=== PATIENT | female | born 1950 | race Caucasian/White ===

== ENCOUNTER → 2017-03-24 | Outpatient (CLI) | payer MEDICARE, OTHER ==
[~2017-03-24] MED LIST: ALEVE 220MG220 MG PO; ATENOLOL PO; B-12 250 MCG PO; CLARITIN 1010 MG/TAB PO; COMPAZINE 110 MG/TAB PO; DECADRON 4MG TAB4 MG PO; LEVOTHYROXINE PO; PRILOSEC 20MG20 MG PO; SENOKOT S 50 MG1 TAB PO; SYNTHROID0.112 MG/T PO; TENORMIN 2525 MG/TAB PO; VITAMIN D31000 IU PO
== END ==
LOC: COL.RAD 05:54
DX: R10.11 Right upper quadrant pain (principal)
CPT/HCPCS: A9537; J2805

== ENCOUNTER → 2017-03-31 | Outpatient (CLI) | payer MEDICARE, OTHER | LOC: COL.RAD 10:55 | DX: M25.552 Pain in left hip (principal); M16.12 Unilateral primary osteoarthritis, left hip | CPT/HCPCS: J3301; Q9967 ==

== ENCOUNTER 2017-04-13 06:26 | Day surgery (SDC) | payer MEDICARE, OTHER ==
[2006-01-22 05:56] VITALS: BP 135/74
[~2017-04-13] VITALS: Ht 162.6 cm; Wt 60.0 kg
[~2017-04-13 06:26] MED LIST changes: -SYNTHROID0.112 MG/T PO; -TENORMIN 2525 MG/TAB PO; -VITAMIN D31000 IU PO
[2017-04-13 06:45] VITALS: BP 117/55; PULSE 79; TEMP 98.2
[2017-04-13] MEDS ORDERED: TENORMIN 2525 MG/TAB PO (06:52)
[2017-04-13] MEDS ORDERED: SYNTHROID0.112 MG/T PO (06:52)
[2017-04-13] MEDS ORDERED: VITAMIN D31000 IU PO (06:53)
[2017-04-13 08:00] VITALS: BP 136/65; PULSE 74; TEMP 98.1
[2017-04-13 08:15] VITALS: BP 114/63; PULSE 60
[2017-04-13 08:30] VITALS: BP 117/57; PULSE 60
[2017-04-13 08:45] VITALS: BP 123/47; PULSE 59
== END 2017-04-13 09:15 | disposition home or self-care (01) ==
LOC: SDCO 06:26
DX: Z12.11 Encounter for screening for malignant neoplasm of colon (principal); D12.0 Benign neoplasm of cecum; K57.30 Diverticulosis of large intestine without perforation or abscess without bleeding; Z85.850 Personal history of malignant neoplasm of thyroid; Z85.831 Personal history of malignant neoplasm of soft tissue
CPT/HCPCS: J2250; J2405; J3010; J7030

== ENCOUNTER → 2017-06-03 | Outpatient (CLI) | payer MEDICARE, OTHER ==
[~2017-06-03] MED LIST changes: +SYNTHROID0.112 MG/T PO; +TENORMIN 2525 MG/TAB PO; +VITAMIN D31000 IU PO
== END ==
LOC: COL.RAD 09:44
DX: M25.552 Pain in left hip (principal); M54.5 Low back pain
CPT/HCPCS: J3301; Q9967

== ENCOUNTER → 2017-08-25 | Outpatient (CLI) | payer MEDICARE, OTHER | LOC: MC.RAD 08-23 09:20 | DX: Z12.31 Encounter for screening mammogram for malignant neoplasm of breast (principal) ==

== ENCOUNTER → 2017-12-14 | Outpatient (CLI) | payer MEDICARE, OTHER | LOC: COL.RAD 07:27 | DX: R93.5 Abnormal findings on diagnostic imaging of other abdominal regions, including retroperitoneum (principal); C49.9 Malignant neoplasm of connective and soft tissue, unspecified | CPT/HCPCS: J7050; Q9967 ==

== ENCOUNTER → 2018-08-04 | Outpatient (CLI) | payer MEDICARE, OTHER | LOC: COL.RAD 07:35 | DX: C49.9 Malignant neoplasm of connective and soft tissue, unspecified (principal); R19.07 Generalized intra-abdominal and pelvic swelling, mass and lump | CPT/HCPCS: Q9967 ==

== ENCOUNTER → 2018-10-10 | Outpatient (CLI) | payer MEDICARE, OTHER | LOC: MC.RAD 09-15 09:40 | DX: Z12.31 Encounter for screening mammogram for malignant neoplasm of breast (principal) ==

== ENCOUNTER 2020-02-20 05:33 | Day surgery (SDC) | payer MEDICARE, OTHER ==
[2006-01-22 05:56] VITALS: BP 135/74
[~2020-02-20] VITALS: Ht 162.6 cm; Wt 63.8 kg
[2020-02-20 06:08] VITALS: BP 141/65; PULSE 56; TEMP 98.1
[2020-02-20] MEDS ORDERED: COZAAR 25MG25 MG/TAB PO (06:16)
[2020-02-20] MEDS ORDERED: VITAMINC1000TA PO (06:16)
[2020-02-20] MEDS ORDERED: SYNTHROID0.075 MG/T PO (06:16)
--- NOTE | 2020-02-20 06:16 | NUR ---
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
[2020-02-20 08:22] VITALS: BP 141/61; PULSE 53; TEMP 97.4
--- NOTE | 2020-02-20 08:22 | NUR ---
TO RM 8 PER CART FROM PACU. ALERT ORIENTED X3, TALKING WITH STAFF. RECEIVED WATER AND TAKING SIPS. DENIES N/V AND DENIES PAIN OR DISCOMFORT AT THIS TIME. ASSISTED TO BATHROOM. PATIENT VOIDED AND ASSISTED BACK TO BED.
[2020-02-20 08:35] VITALS: BP 137/59; PULSE 51
--- NOTE | 2020-02-20 08:35 | NUR ---
RECEIVED TOAST AND CRANBERRY JUICE.
[2020-02-20 09:00] VITALS: BP 139/59; PULSE 52
--- NOTE | 2020-02-20 09:00 | NUR ---
ATE 100% AND TOLERATED WELL.
[2020-02-20 09:22] VITALS: BP 148/49; PULSE 54
--- NOTE | 2020-02-20 09:22 | NUR ---
AMBULATED TO BATHROOM AND VOIDED 2ND TIME. DISCONTINUED IV AND INT- CATHETER INTACT PATIENT GETTING DRESSED
--- NOTE | 2020-02-20 09:30 | NUR ---
RECEIVED DISCHARGE INSTRUCTIONS AND VERBALIZED UNDERSTANDING. CALLED FOR RIDE HOME.
--- NOTE | 2020-02-20 09:50 | NUR ---
DISCHARGED PER WC BY NURSING STAFF TO PRIVATE CAR IN CARE .
== END 2020-02-20 10:02 | disposition home or self-care (01) ==
LOC: SDCO 05:33
DX: N13.1 Hydronephrosis with ureteral stricture, not elsewhere classified (principal); I10 Essential (primary) hypertension; Z85.850 Personal history of malignant neoplasm of thyroid; Z90.710 Acquired absence of both cervix and uterus
CPT/HCPCS: C1769; C2617; J0690; J1100; J2405; J2704; J3010; J7120; Q9967

== ENCOUNTER 2020-05-22 09:06 | Day surgery (SDC) | payer MEDICARE, OTHER ==
[2006-01-22 05:56] VITALS: BP 135/74
[~2020-05-22] VITALS: Ht 162.6 cm; Wt 62.2 kg
[~2020-05-22 09:06] MED LIST changes: +COZAAR 25MG25 MG/TAB PO; +SYNTHROID0.075 MG/T PO; +VITAMINC1000TA PO
[2020-05-22 09:27] VITALS: BP 128/76; PULSE 59; TEMP 98.2
[2020-05-22] MEDS ORDERED: TENORMIN 2525 MG/TAB PO (09:32)
[2020-05-22] MEDS ORDERED: SYNTHROID0.075 MG/T PO (09:32)
[2020-05-22] MEDS ORDERED: COZAAR 25MG25 MG/TAB PO (09:33)
[2020-05-22] MEDS ORDERED: VITAMINC1000TA PO (09:33)
[2020-05-22] MEDS ORDERED: NORCO 325 MG-51 TAB PO (11:22)
[2020-05-22 11:24] VITALS: BP 111/43; PULSE 61; TEMP 97.7
--- NOTE | 2020-05-22 11:24 | NUR ---
Arrived back to [facility] from the operating room at this time. The patient appears alert and oriented and denies any pain or nausea at this time. The patient has a bandaid and gauze dressings to her right upper chest that appear clean, dry and intact. The patient's post operative vital signs were started at this time. The patient voices a desire to ambulate to the bathroom and did so with the stand by assistance of one nurse and appeared to tolerate the activity well. The patient voided without difficulty. Call light is within reach. Will continue to monitor the patient.
[2020-05-22 11:39] VITALS: BP 111/65; PULSE 62
--- NOTE | 2020-05-22 11:40 | NUR ---
The patient's vital signs appear stable. The patient agrees to try some cranberry juice and toast at this time. Will continue to monitor the patient.
[2020-05-22 11:54] VITALS: BP 152/59; PULSE 67
--- NOTE | 2020-05-22 11:55 | NUR ---
The patient appears to be tolerating the food and drink well. The patient continues to deny any pain or nausea at this time. Vital signs remain stable. Will continue to monitor the patient.
[2020-05-22 12:10] VITALS: BP 124/48; PULSE 50
--- NOTE | 2020-05-22 12:10 | NUR ---
The patient's IV to her right hand was removed and a pressure dressing was applied to the site. The patient ambulated to the bathroom and then got dressed independently and appeared to tolerate the activity well. Discharge instructions were reviewed with the patient at this time. She verbalized understanding and has no questions for the nurse at this time.
--- NOTE | 2020-05-22 12:16 | NUR ---
The patient was escorted out via wheelchair to a private vehicle by EMERSON Abrams. The patient's belongings and discharge paperwork were sent with her. The patient's is present to drive her home.
== END 2020-05-22 12:16 | disposition home or self-care (01) ==
LOC: SDCO 09:06
DX: C49.9 Malignant neoplasm of connective and soft tissue, unspecified (principal); C79.2 Secondary malignant neoplasm of skin; I10 Essential (primary) hypertension; E78.00 Pure hypercholesterolemia, unspecified; E89.0 Postprocedural hypothyroidism; M19.90 Unspecified osteoarthritis, unspecified site; R20.2 Paresthesia of skin; Z85.850 Personal history of malignant neoplasm of thyroid; Z92.3 Personal history of irradiation; Z92.21 Personal history of antineoplastic chemotherapy; Z80.42 Family history of malignant neoplasm of prostate; Z90.710 Acquired absence of both cervix and uterus; Z90.722 Acquired absence of ovaries, bilateral
CPT/HCPCS: C1751; J0690; J2250; J2704; J7120

== ENCOUNTER → 2020-05-23 | Outpatient (CLI) | payer MEDICARE, OTHER ==
[~2020-05-23] MED LIST changes: +NORCO 325 MG-51 TAB PO
== END ==
LOC: COL.VAS 05-10 09:00
DX: C54.2 Malignant neoplasm of myometrium (principal); C79.89 Secondary malignant neoplasm of other specified sites; C78.6 Secondary malignant neoplasm of retroperitoneum and peritoneum; I36.1 Nonrheumatic tricuspid (valve) insufficiency; R59.0 Localized enlarged lymph nodes; N13.30 Unspecified hydronephrosis; Z90.710 Acquired absence of both cervix and uterus; Z96.0 Presence of urogenital implants
CPT/HCPCS: Q9967

== ENCOUNTER 2020-07-30 05:24 | Day surgery (SDC) | payer MEDICARE, OTHER ==
[2006-01-22 05:56] VITALS: BP 135/74
[~2020-07-30] VITALS: Ht 162.6 cm; Wt 62.5 kg
[~2020-07-30 05:24] MED LIST changes: +SYNTHROID0.05 MG/TA PO; +[UNRECOGNIZED DRUG - REMARK]
[2020-07-30 06:11] VITALS: BP 151/68; PULSE 65; TEMP 98
[2020-07-30 08:10] VITALS: BP 169/70; PULSE 65; TEMP 97.7
--- NOTE | 2020-07-30 08:10 | NUR ---
Patient arrives to [facility] via cart, accompanied by BAKERY SALES CLERK Sudha. She is alert and oriented. She denies pain. She complains of mild nausea, for which she has received Zofran and Phenergan for. She states she needs to void. Vitals are obtained, WNL. She is escorted to the restroom by staff, voids large amount clear/yellow urine, and returns to room. Gait was steady. She is offered and receives Sprite and crackers to eat. Lights are dimmed for comfort. Call light in reach.
[2020-07-30 08:25] VITALS: BP 146/69; PULSE 59
--- NOTE | 2020-07-30 08:25 | NUR ---
Patient states her nausea is improved. She is resting quietly. She denies other complaints.
[2020-07-30 08:40] VITALS: BP 141/64; PULSE 62
--- NOTE | 2020-07-30 08:40 | NUR ---
Patient is resting comfortably in room. VSS on room air. Denies pain or nausea. Ambulates to restroom with steady gait, voids, and returns to room.
[2020-07-30 08:55] VITALS: BP 148/62; PULSE 59
--- NOTE | 2020-07-30 08:55 | NUR ---
Patient is awake, sipping her sprite. She states she is "starting to feel more perky". VSS on room air.
--- NOTE | 2020-07-30 09:28 | NUR ---
Patient ambulates to the restroom, voids clear/yellow urine, returns to room.
--- NOTE | 2020-07-30 09:50 | NUR ---
Patient ate/drank and tolerated PO well. Patient has met discharge criteria. Discharge instructions are discussed; she denies any questions and verbalizes understanding. Her Byrnes catheter is flushed with 20mL NS and heparin locked per order from Dr. Kraus. She changes to her clothing independently. She is escorted to the exit via wheelchair by staff. She is discharged to home with ride in private with , Marisela, at 0950.
== END 2020-07-30 09:50 | disposition home or self-care (01) ==
LOC: SDCO 05:24
DX: N13.1 Hydronephrosis with ureteral stricture, not elsewhere classified (principal); I10 Essential (primary) hypertension; C49.9 Malignant neoplasm of connective and soft tissue, unspecified; M19.90 Unspecified osteoarthritis, unspecified site; Z90.710 Acquired absence of both cervix and uterus; Z80.3 Family history of malignant neoplasm of breast; Z80.0 Family history of malignant neoplasm of digestive organs
CPT/HCPCS: C1769; C2617; J0690; J1644; J2550; J2704; J3010

== ENCOUNTER 2020-07-31 09:00 | Outpatient (RCR) | payer MEDICARE, OTHER ==
[2006-01-22 05:56] VITALS: BP 135/74
[2020-05-29 09:43] VITALS: BP 138/71; PULSE 63; TEMP 98.9
[2020-05-29 10:55] LABS: ALBUMIN 3.7 gm/dL (3.5-5.0); BILIRUBIN,TOTAL 0.4 mg/dL (0.0-1.0); CALCIUM 8.9 mg/dL (8.4-10.2); CREATININE, serum 0.73 (0.52-1.25); POTASSIUM 4.1 mmol/L (3.4-5.0); TOTAL PROTEIN 6.8 gm/dL (6.4-8.2)
[2020-05-29 11:03] LABS: HEMATOCRIT 39.4 % (37.0-47.0); HEMOGLOBIN 13.1 g/dl (12.5-16.0); MEAN CELL VOLUME 89 fl (80.0-100.0); MEAN CORPUSCULAR HEMOGLOBIN 30 pg (27.0-31.0); MEAN CORPUSCULAR HGB CONC 33 g/dl (33.0-37.0); MEAN PLATELET VOLUME 9.7 fl (7.4-10.4); PLATELET COUNT 210 K/mm3 (130-400); RED BLOOD COUNT 4.43 M/mm3 (4.10-5.30); REDCELL DISTRIBUTION WIDTH-CV 13.1 % (11.5-14.5)
[2020-05-29 11:19] LABS: BAND 3 % (0-10); EOSINOPHIL 2 % (0-4); LYMPHOCYTE 26 % (20.0-51.0); NEUTROPHILS 62 % (42.0-75.2); PLATELET ESTIMATE NORMAL (NORMAL)
[2020-06-05 09:00] VITALS: BP 111/64; PULSE 76; TEMP 98.4
[2020-06-05 09:32] LABS: ALBUMIN 3.8 gm/dL (3.5-5.0); BILIRUBIN,TOTAL 0.6 mg/dL (0.0-1.0); CALCIUM 8.1 mg/dL (8.4-10.2); CREATININE, serum 0.8 (0.52-1.25); HEMATOCRIT 40.7 % (37.0-47.0); HEMOGLOBIN 13.4 g/dl (12.5-16.0); MEAN CELL VOLUME 90 fl (80.0-100.0); MEAN CORPUSCULAR HEMOGLOBIN 30 pg (27.0-31.0); MEAN CORPUSCULAR HGB CONC 33 g/dl (33.0-37.0); MEAN PLATELET VOLUME 9.1 fl (7.4-10.4); PLATELET COUNT 163 K/mm3 (130-400); POTASSIUM 4.1 mmol/L (3.4-5.0); RED BLOOD COUNT 4.52 M/mm3 (4.10-5.30)
[2020-06-05 09:49] LABS: BAND 2 % (0-10); EOSINOPHIL 1 % (0-4); LYMPHOCYTE 15 % (20.0-51.0); NEUTROPHILS 81 % (42.0-75.2); PLATELET ESTIMATE NORMAL (NORMAL)
[2020-06-12 09:56] VITALS: BP 111/67; PULSE 66; TEMP 98.8
[2020-06-12 09:59] LABS: HEMOGLOBIN 11.6 g/dl (12.5-16.0); MEAN CELL VOLUME 88 fl (80.0-100.0); MEAN CORPUSCULAR HEMOGLOBIN 29 pg (27.0-31.0); MEAN CORPUSCULAR HGB CONC 33 g/dl (33.0-37.0); MEAN PLATELET VOLUME 9.6 fl (7.4-10.4); PLATELET COUNT 163 K/mm3 (130-400); RED BLOOD COUNT 3.96 M/mm3 (4.10-5.30); REDCELL DISTRIBUTION WIDTH-CV 12.4 % (11.5-14.5)
[2020-06-12 10:03] LABS: HEMATOCRIT 34.9 % (37.0-47.0)
[2020-06-12 10:09] LABS: ALBUMIN 3.5 gm/dL (3.5-5.0); BILIRUBIN,TOTAL 0.2 mg/dL (0.0-1.0); CALCIUM 8.7 mg/dL (8.4-10.2); CREATININE, serum 0.75 (0.52-1.25); POTASSIUM 4.3 mmol/L (3.4-5.0); TOTAL PROTEIN 6.5 gm/dL (6.4-8.2)
[2020-06-12 10:38] LABS: BAND 3 % (0-10); EOSINOPHIL 4 % (0-4); LYMPHOCYTE 58 % (20.0-51.0); NEUTROPHILS 32 % (42.0-75.2); PLATELET ESTIMATE NORMAL (NORMAL)
[2020-06-19 09:26] LABS: ALBUMIN 3.7 gm/dL (3.5-5.0); BILIRUBIN,TOTAL 0.3 mg/dL (0.0-1.0); CALCIUM 8.8 mg/dL (8.4-10.2); CREATININE, serum 0.71 (0.52-1.25); POTASSIUM 4.1 mmol/L (3.4-5.0); TOTAL PROTEIN 6.7 gm/dL (6.4-8.2)
[2020-06-19 09:27] VITALS: BP 131/73; PULSE 69; TEMP 98.1
[2020-06-19 09:38] LABS: HEMOGLOBIN 11.6 g/dl (12.5-16.0); MEAN CELL VOLUME 90 fl (80.0-100.0); MEAN CORPUSCULAR HEMOGLOBIN 30 pg (27.0-31.0); MEAN CORPUSCULAR HGB CONC 33 g/dl (33.0-37.0); MEAN PLATELET VOLUME 9.1 fl (7.4-10.4); PLATELET COUNT 312 K/mm3 (130-400); RED BLOOD COUNT 3.88 M/mm3 (4.10-5.30); REDCELL DISTRIBUTION WIDTH-CV 13.7 % (11.5-14.5)
[2020-06-19 10:51] LABS: BAND 22 % (0-10); LYMPHOCYTE 21 % (20.0-51.0); METAMYELOCYTE 2 % (0-0); NEUTROPHILS 50 % (42.0-75.2)
[2020-06-19 10:52] LABS: PLATELET ESTIMATE NORMAL (NORMAL)
[2020-06-26 09:35] LABS: HEMOGLOBIN 11.1 g/dl (12.5-16.0); MEAN CELL VOLUME 90 fl (80.0-100.0); MEAN CORPUSCULAR HEMOGLOBIN 29 pg (27.0-31.0); MEAN CORPUSCULAR HGB CONC 33 g/dl (33.0-37.0); MEAN PLATELET VOLUME 8.9 fl (7.4-10.4); PLATELET COUNT 159 K/mm3 (130-400); RED BLOOD COUNT 3.77 M/mm3 (4.10-5.30); REDCELL DISTRIBUTION WIDTH-CV 13.8 % (11.5-14.5)
[2020-06-26 09:40] LABS: HEMATOCRIT 33.9 % (37.0-47.0)
[2020-06-26 09:43] VITALS: BP 130/68; PULSE 72; TEMP 98.7
[2020-06-26 09:52] LABS: ALBUMIN 3.4 gm/dL (3.5-5.0); BILIRUBIN,TOTAL 0.3 mg/dL (0.0-1.0); CREATININE, serum 0.69 (0.52-1.25); POTASSIUM 4.2 mmol/L (3.4-5.0); TOTAL PROTEIN 6.3 gm/dL (6.4-8.2)
[2020-06-26 10:02] LABS: BAND 3 % (0-10); EOSINOPHIL 1 % (0-4); LYMPHOCYTE 37 % (20.0-51.0); NEUTROPHILS 55 % (42.0-75.2); PLATELET ESTIMATE NORMAL (NORMAL)
[2020-07-01 09:22] VITALS: BP 129/67; PULSE 57; TEMP 98.2
[2020-07-01 09:24] LABS: HEMOGLOBIN 10.7 g/dl (12.5-16.0); MEAN CELL VOLUME 89 fl (80.0-100.0); MEAN CORPUSCULAR HEMOGLOBIN 30 pg (27.0-31.0); MEAN CORPUSCULAR HGB CONC 34 g/dl (33.0-37.0); MEAN PLATELET VOLUME 9.8 fl (7.4-10.4); PLATELET COUNT 198 K/mm3 (130-400); RED BLOOD COUNT 3.56 M/mm3 (4.10-5.30); REDCELL DISTRIBUTION WIDTH-CV 13.5 % (11.5-14.5)
[2020-07-01 09:38] LABS: ALBUMIN 3.6 gm/dL (3.5-5.0); BILIRUBIN,TOTAL 0.2 mg/dL (0.0-1.0); CALCIUM 8.9 mg/dL (8.4-10.2); CREATININE, serum 0.72 (0.52-1.25); TOTAL PROTEIN 6.6 gm/dL (6.4-8.2)
[2020-07-01 10:02] LABS: HEMATOCRIT 31.5 % (37.0-47.0)
[2020-07-01 10:18] LABS: BAND 5 % (0-10); EOSINOPHIL 8 % (0-4); LYMPHOCYTE 43 % (20.0-51.0); NEUTROPHILS 37 % (42.0-75.2); PLATELET ESTIMATE NORMAL (NORMAL)
[2020-07-10 09:43] LABS: HEMOGLOBIN 11.2 g/dl (12.5-16.0); MEAN CELL VOLUME 90 fl (80.0-100.0); MEAN CORPUSCULAR HEMOGLOBIN 31 pg (27.0-31.0); MEAN CORPUSCULAR HGB CONC 34 g/dl (33.0-37.0); MEAN PLATELET VOLUME 9.3 fl (7.4-10.4); PLATELET COUNT 338 K/mm3 (130-400); RED BLOOD COUNT 3.66 M/mm3 (4.10-5.30); REDCELL DISTRIBUTION WIDTH-CV 16.1 % (11.5-14.5)
[2020-07-10 09:44] LABS: HEMATOCRIT 33.1 % (37.0-47.0)
[2020-07-10 09:45] VITALS: BP 116/54; PULSE 66; TEMP 98.3
[2020-07-10 10:01] LABS: ALBUMIN 3.9 gm/dL (3.5-5.0); BILIRUBIN,TOTAL 0.4 mg/dL (0.0-1.0); CALCIUM 8.9 mg/dL (8.4-10.2); CREATININE, serum 0.71 (0.52-1.25); POTASSIUM 3.9 mmol/L (3.4-5.0); TOTAL PROTEIN 6.8 gm/dL (6.4-8.2)
[2020-07-10 10:25] LABS: BAND 17 % (0-10); BASOPHIL 1 % (0-2); EOSINOPHIL 1 % (0-4); LYMPHOCYTE 26 % (20.0-51.0); NEUTROPHILS 47 % (42.0-75.2); PLATELET ESTIMATE NORMAL (NORMAL)
[2020-07-10 10:28] LABS: THYROID STIMULATING HORMONE 6.4 uIU/mL (0.465-4.680)
[2020-07-17 09:39] VITALS: BP 111/57; PULSE 73; TEMP 97.6
[2020-07-17 09:48] LABS: HEMOGLOBIN 10.8 g/dl (12.5-16.0); MEAN CELL VOLUME 93 fl (80.0-100.0); MEAN CORPUSCULAR HEMOGLOBIN 31 pg (27.0-31.0); MEAN CORPUSCULAR HGB CONC 33 g/dl (33.0-37.0); MEAN PLATELET VOLUME 9.1 fl (7.4-10.4); PLATELET COUNT 169 K/mm3 (130-400); REDCELL DISTRIBUTION WIDTH-CV 16.8 % (11.5-14.5)
[2020-07-17 09:51] LABS: HEMATOCRIT 32.5 % (37.0-47.0)
[2020-07-17 09:56] LABS: ALBUMIN 3.7 gm/dL (3.5-5.0); BILIRUBIN,TOTAL 0.5 mg/dL (0.0-1.0); CALCIUM 8.2 mg/dL (8.4-10.2); CREATININE, serum 0.72 (0.52-1.25); POTASSIUM 4.1 mmol/L (3.4-5.0); TOTAL PROTEIN 6.3 gm/dL (6.4-8.2)
[2020-07-17 12:00] LABS: BAND 19 % (0-10); BASOPHIL 2 % (0-2); LYMPHOCYTE 20 % (20.0-51.0); NEUTROPHILS 59 % (42.0-75.2); PLATELET ESTIMATE NORMAL (NORMAL)
[2020-07-24 09:27] VITALS: BP 137/62; PULSE 69; TEMP 98.2
[2020-07-24 09:42] LABS: HEMOGLOBIN 10.5 g/dl (12.5-16.0); MEAN CELL VOLUME 91 fl (80.0-100.0); MEAN CORPUSCULAR HEMOGLOBIN 31 pg (27.0-31.0); MEAN CORPUSCULAR HGB CONC 34 g/dl (33.0-37.0); MEAN PLATELET VOLUME 10.2 fl (7.4-10.4); PLATELET COUNT 132 K/mm3 (130-400); RED BLOOD COUNT 3.42 M/mm3 (4.10-5.30); REDCELL DISTRIBUTION WIDTH-CV 16.6 % (11.5-14.5)
[2020-07-24 09:54] LABS: ALBUMIN 3.7 gm/dL (3.5-5.0); BILIRUBIN,TOTAL 0.3 mg/dL (0.0-1.0); CALCIUM 8.8 mg/dL (8.4-10.2); CREATININE, serum 0.72 (0.52-1.25); MAGNESIUM 1.8 mg/dL (1.6-2.3); POTASSIUM 3.7 mmol/L (3.4-5.0); TOTAL PROTEIN 6.5 gm/dL (6.4-8.2)
[2020-07-24 10:03] LABS: BAND 25 % (0-10); EOSINOPHIL 1 % (0-4); LYMPHOCYTE 24 % (20.0-51.0); NEUTROPHILS 46 % (42.0-75.2); PLATELET ESTIMATE NORMAL (NORMAL)
[~2020-07-31] VITALS: Ht 162.6 cm; Wt 62.0 kg
[2020-07-31 09:00] VITALS: BP 112/67; PULSE 81; TEMP 98.2
[2020-07-31 09:50] LABS: HEMOGLOBIN 10.5 g/dl (12.5-16.0); MEAN CELL VOLUME 93 fl (80.0-100.0); MEAN CORPUSCULAR HEMOGLOBIN 31 pg (27.0-31.0); MEAN CORPUSCULAR HGB CONC 34 g/dl (33.0-37.0); MEAN PLATELET VOLUME 9.8 fl (7.4-10.4); PLATELET COUNT 326 K/mm3 (130-400); RED BLOOD COUNT 3.37 M/mm3 (4.10-5.30); REDCELL DISTRIBUTION WIDTH-CV 17.8 % (11.5-14.5)
[2020-07-31 09:52] LABS: HEMATOCRIT 31.3 % (37.0-47.0)
[2020-07-31 10:03] LABS: ALBUMIN 3.8 gm/dL (3.5-5.0); BILIRUBIN,TOTAL 0.4 mg/dL (0.0-1.0); CALCIUM 8.5 mg/dL (8.4-10.2); CREATININE, serum 0.75 (0.52-1.25); MAGNESIUM 1.9 mg/dL (1.6-2.3); POTASSIUM 3.7 mmol/L (3.4-5.0); TOTAL PROTEIN 6.8 gm/dL (6.4-8.2)
[2020-07-31 10:15] LABS: BAND 13 % (0-10); EOSINOPHIL 1 % (0-4); LYMPHOCYTE 22 % (20.0-51.0); NEUTROPHILS 57 % (42.0-75.2); PLATELET ESTIMATE NORMAL (NORMAL)
== END 2020-08-01 09:09 | disposition home or self-care (01) ==
LOC: EUO 09:00
PROVIDERS: Family Medicine; Internal Medicine
DX: C54.2 Malignant neoplasm of myometrium (principal)
CPT/HCPCS: J1644

== ENCOUNTER → 2020-08-15 | Outpatient (CLI) | payer MEDICARE, OTHER | LOC: COL.VAS 13:19 | DX: C54.2 Malignant neoplasm of myometrium (principal); I36.1 Nonrheumatic tricuspid (valve) insufficiency; I51.7 Cardiomegaly; Z92.21 Personal history of antineoplastic chemotherapy ==

== ENCOUNTER 2020-10-30 09:00 | Outpatient (RCR) | payer MEDICARE, OTHER ==
[2006-01-22 05:56] VITALS: BP 135/74
[2020-08-07 09:30] VITALS: BP 112/62; PULSE 65; TEMP 97.9
[2020-08-07 09:36] LABS: HEMATOCRIT 33.5 % (37.0-47.0); MEAN CELL VOLUME 95 fl (80.0-100.0); MEAN CORPUSCULAR HEMOGLOBIN 31 pg (27.0-31.0); MEAN CORPUSCULAR HGB CONC 33 g/dl (33.0-37.0); MEAN PLATELET VOLUME 9.1 fl (7.4-10.4); PLATELET COUNT 317 K/mm3 (130-400); RED BLOOD COUNT 3.53 M/mm3 (4.10-5.30); REDCELL DISTRIBUTION WIDTH-CV 18.6 % (11.5-14.5)
[2020-08-07 09:41] LABS: ALBUMIN 3.9 gm/dL (3.5-5.0); BILIRUBIN,TOTAL 0.5 mg/dL (0.0-1.0); CALCIUM 8.4 mg/dL (8.4-10.2); CREATININE, serum 0.77 (0.52-1.25); POTASSIUM 3.9 mmol/L (3.4-5.0); TOTAL PROTEIN 6.9 gm/dL (6.4-8.2)
[2020-08-07 10:16] LABS: BAND 19 % (0-10); EOSINOPHIL 3 % (0-4); LYMPHOCYTE 10 % (20.0-51.0); METAMYELOCYTE 1 % (0-0); NEUTROPHILS 67 % (42.0-75.2); PLATELET ESTIMATE NORMAL (NORMAL)
[2020-08-14 09:31] LABS: HEMOGLOBIN 10.5 g/dl (12.5-16.0); MEAN CELL VOLUME 94 fl (80.0-100.0); MEAN CORPUSCULAR HEMOGLOBIN 32 pg (27.0-31.0); MEAN CORPUSCULAR HGB CONC 34 g/dl (33.0-37.0); MEAN PLATELET VOLUME 9.8 fl (7.4-10.4); PLATELET COUNT 189 K/mm3 (130-400); REDCELL DISTRIBUTION WIDTH-CV 18.1 % (11.5-14.5)
[2020-08-14 09:37] LABS: HEMATOCRIT 30.9 % (37.0-47.0)
[2020-08-14 09:44] LABS: ALBUMIN 3.8 gm/dL (3.5-5.0); BILIRUBIN,TOTAL 0.3 mg/dL (0.0-1.0); CALCIUM 8.9 mg/dL (8.4-10.2); CREATININE, serum 0.79 (0.52-1.25); MAGNESIUM 1.7 mg/dL (1.6-2.3); POTASSIUM 3.8 mmol/L (3.4-5.0); TOTAL PROTEIN 6.7 gm/dL (6.4-8.2)
[2020-08-14 10:01] LABS: ANISOCYTOSIS 1+; BAND 19 % (0-10); EOSINOPHIL 1 % (0-4); LYMPHOCYTE 22 % (20.0-51.0); NEUTROPHILS 55 % (42.0-75.2); PLATELET ESTIMATE NORMAL (NORMAL)
[2020-08-14 10:39] VITALS: BP 125/68; PULSE 66; TEMP 98.6
[2020-08-21 09:00] VITALS: BP 127/78; PULSE 69; TEMP 98.5
[2020-08-21 09:46] LABS: HEMOGLOBIN 10.5 g/dl (12.5-16.0); MEAN CELL VOLUME 94 fl (80.0-100.0); MEAN CORPUSCULAR HEMOGLOBIN 32 pg (27.0-31.0); MEAN CORPUSCULAR HGB CONC 34 g/dl (33.0-37.0); MEAN PLATELET VOLUME 9.8 fl (7.4-10.4); PLATELET COUNT 259 K/mm3 (130-400); RED BLOOD COUNT 3.32 M/mm3 (4.10-5.30); REDCELL DISTRIBUTION WIDTH-CV 18.6 % (11.5-14.5)
[2020-08-21 09:50] LABS: HEMATOCRIT 31.2 % (37.0-47.0)
[2020-08-21 09:51] LABS: ALBUMIN 3.9 gm/dL (3.5-5.0); BILIRUBIN,TOTAL 0.4 mg/dL (0.0-1.0); CALCIUM 8.8 mg/dL (8.4-10.2); CREATININE, serum 0.74 (0.52-1.25); MAGNESIUM 1.9 mg/dL (1.6-2.3); POTASSIUM 3.8 mmol/L (3.4-5.0); TOTAL PROTEIN 7.1 gm/dL (6.4-8.2)
[2020-08-21 10:09] LABS: BAND 11 % (0-10); BASOPHIL 2 % (0-2); EOSINOPHIL 3 % (0-4); LYMPHOCYTE 10 % (20.0-51.0); NEUTROPHILS 64 % (42.0-75.2); OVALOCYTES 1+; PLATELET ESTIMATE NORMAL (NORMAL)
[2020-08-28 09:53] VITALS: BP 119/68; PULSE 73; TEMP 97.8
[2020-08-28 09:55] LABS: HEMOGLOBIN 10.8 g/dl (12.5-16.0); MEAN CELL VOLUME 99 fl (80.0-100.0); MEAN CORPUSCULAR HEMOGLOBIN 33 pg (27.0-31.0); MEAN CORPUSCULAR HGB CONC 33 g/dl (33.0-37.0); MEAN PLATELET VOLUME 9.4 fl (7.4-10.4); PLATELET COUNT 322 K/mm3 (130-400); RED BLOOD COUNT 3.29 M/mm3 (4.10-5.30); REDCELL DISTRIBUTION WIDTH-CV 19.5 % (11.5-14.5)
[2020-08-28 09:56] LABS: HEMATOCRIT 32.4 % (37.0-47.0)
[2020-08-28 10:05] LABS: ALBUMIN 3.9 gm/dL (3.5-5.0); BILIRUBIN,TOTAL 0.4 mg/dL (0.0-1.0); CALCIUM 8.5 mg/dL (8.4-10.2); CREATININE, serum 0.72 (0.52-1.25); POTASSIUM 3.8 mmol/L (3.4-5.0); TOTAL PROTEIN 6.9 gm/dL (6.4-8.2)
[2020-08-28 10:18] LABS: ANISOCYTOSIS 2+; BAND 19 % (0-10); BASOPHIL 1 % (0-2); LYMPHOCYTE 11 % (20.0-51.0); NEUTROPHILS 63 % (42.0-75.2); PLATELET ESTIMATE NORMAL (NORMAL)
[2020-09-05 11:10] VITALS: BP 120/52; PULSE 65; TEMP 98
[2020-09-05 11:42] LABS: ALBUMIN 3.9 gm/dL (3.5-5.0); BILIRUBIN,TOTAL 0.4 mg/dL (0.0-1.0); CALCIUM 8.9 mg/dL (8.4-10.2); CREATININE, serum 0.74 (0.52-1.25); POTASSIUM 4.1 mmol/L (3.4-5.0); TOTAL PROTEIN 6.9 gm/dL (6.4-8.2)
[2020-09-05 11:46] LABS: HEMOGLOBIN 10.6 g/dl (12.5-16.0); MEAN CELL VOLUME 98 fl (80.0-100.0); MEAN CORPUSCULAR HEMOGLOBIN 33 pg (27.0-31.0); MEAN CORPUSCULAR HGB CONC 34 g/dl (33.0-37.0); MEAN PLATELET VOLUME 9.6 fl (7.4-10.4); PLATELET COUNT 251 K/mm3 (130-400); RED BLOOD COUNT 3.22 M/mm3 (4.10-5.30); REDCELL DISTRIBUTION WIDTH-CV 18.2 % (11.5-14.5)
[2020-09-05 12:06] LABS: BAND 21 % (0-10); BASOPHIL 1 % (0-2); EOSINOPHIL 4 % (0-4); HEMATOCRIT 31.6 % (37.0-47.0); LYMPHOCYTE 15 % (20.0-51.0); NEUTROPHILS 49 % (42.0-75.2); OVALOCYTES 1+; PLATELET ESTIMATE NORMAL (NORMAL)
[2020-09-11 09:36] VITALS: BP 123/66; PULSE 68; TEMP 98.5
[2020-09-11 10:14] LABS: HEMOGLOBIN 10.9 g/dl (12.5-16.0); MEAN CELL VOLUME 99 fl (80.0-100.0); MEAN CORPUSCULAR HEMOGLOBIN 33 pg (27.0-31.0); MEAN CORPUSCULAR HGB CONC 33 g/dl (33.0-37.0); MEAN PLATELET VOLUME 9.7 fl (7.4-10.4); PLATELET COUNT 282 K/mm3 (130-400); REDCELL DISTRIBUTION WIDTH-CV 17.2 % (11.5-14.5)
[2020-09-11 10:15] LABS: HEMATOCRIT 32.6 % (37.0-47.0)
[2020-09-11 10:23] LABS: ALBUMIN 3.8 gm/dL (3.5-5.0); BILIRUBIN,TOTAL 0.4 mg/dL (0.0-1.0); CALCIUM 8.9 mg/dL (8.4-10.2); CREATININE, serum 0.74 (0.52-1.25); POTASSIUM 4.2 mmol/L (3.4-5.0); TOTAL PROTEIN 6.8 gm/dL (6.4-8.2)
[2020-09-11 10:24] LABS: BAND 20 % (0-10); BASOPHIL 2 % (0-2); EOSINOPHIL 3 % (0-4); LYMPHOCYTE 13 % (20.0-51.0); NEUTROPHILS 57 % (42.0-75.2); PLATELET ESTIMATE NORMAL (NORMAL)
[2020-09-18 09:34] VITALS: BP 102/63; PULSE 80; TEMP 97
[2020-09-18 09:53] LABS: ALBUMIN 3.8 gm/dL (3.5-5.0); BILIRUBIN,TOTAL 0.5 mg/dL (0.0-1.0); CALCIUM 8.3 mg/dL (8.4-10.2); CREATININE, serum 0.81 (0.52-1.25); HEMOGLOBIN 10.7 g/dl (12.5-16.0); MEAN CELL VOLUME 102 fl (80.0-100.0); MEAN CORPUSCULAR HEMOGLOBIN 33 pg (27.0-31.0); MEAN CORPUSCULAR HGB CONC 33 g/dl (33.0-37.0); MEAN PLATELET VOLUME 9.5 fl (7.4-10.4); PLATELET COUNT 190 K/mm3 (130-400); POTASSIUM 4.1 mmol/L (3.4-5.0); RED BLOOD COUNT 3.23 M/mm3 (4.10-5.30); REDCELL DISTRIBUTION WIDTH-CV 15.9 % (11.5-14.5); TOTAL PROTEIN 6.6 gm/dL (6.4-8.2)
[2020-09-18 09:55] LABS: HEMATOCRIT 32.9 % (37.0-47.0)
[2020-09-18 10:47] LABS: BAND 16 % (0-10); EOSINOPHIL 6 % (0-4); HYPOCHROMIA 1+; LYMPHOCYTE 11 % (20.0-51.0); NEUTROPHILS 64 % (42.0-75.2)
[2020-09-18 10:48] LABS: OVALOCYTES 1+
[2020-09-18 10:51] LABS: ANISOCYTOSIS 1+; PLATELET ESTIMATE NORMAL (NORMAL)
[2020-09-25 09:33] VITALS: BP 121/70; PULSE 77; TEMP 98.6
[2020-09-25 09:51] LABS: ALBUMIN 3.8 gm/dL (3.5-5.0); BILIRUBIN,TOTAL 0.3 mg/dL (0.0-1.0); CALCIUM 8.8 mg/dL (8.4-10.2); CREATININE, serum 0.76 (0.52-1.25); MAGNESIUM 1.8 mg/dL (1.6-2.3); POTASSIUM 3.7 mmol/L (3.4-5.0); TOTAL PROTEIN 6.5 gm/dL (6.4-8.2)
[2020-09-25 10:32] LABS: MEAN CELL VOLUME 100 fl (80.0-100.0); MEAN CORPUSCULAR HGB CONC 34 g/dl (33.0-37.0); MEAN PLATELET VOLUME 10.4 fl (7.4-10.4); PLATELET COUNT 161 K/mm3 (130-400); RED BLOOD COUNT 2.86 M/mm3 (4.10-5.30); REDCELL DISTRIBUTION WIDTH-CV 14.5 % (11.5-14.5)
[2020-09-25 10:45] LABS: HEMATOCRIT 28.6 % (37.0-47.0); HEMOGLOBIN 9.6 g/dl (12.5-16.0); MEAN CORPUSCULAR HEMOGLOBIN 34 pg (27.0-31.0)
[2020-09-25 11:58] LABS: BAND 13 % (0-10); EOSINOPHIL 3 % (0-4); LYMPHOCYTE 9 % (20.0-51.0); NEUTROPHILS 70 % (42.0-75.2); PLATELET ESTIMATE NORMAL (NORMAL)
[2020-10-02 09:13] VITALS: BP 125/73; PULSE 66; TEMP 98.7
[2020-10-02 09:40] LABS: MEAN CELL VOLUME 100 fl (80.0-100.0); MEAN CORPUSCULAR HGB CONC 34 g/dl (33.0-37.0); MEAN PLATELET VOLUME 9.4 fl (7.4-10.4); PLATELET COUNT 276 K/mm3 (130-400); RED BLOOD COUNT 2.92 M/mm3 (4.10-5.30); REDCELL DISTRIBUTION WIDTH-CV 14.7 % (11.5-14.5)
[2020-10-02 09:43] LABS: HEMATOCRIT 29.3 % (37.0-47.0); HEMOGLOBIN 9.9 g/dl (12.5-16.0); MEAN CORPUSCULAR HEMOGLOBIN 34 pg (27.0-31.0)
[2020-10-02 09:55] LABS: ALBUMIN 3.9 gm/dL (3.5-5.0); BILIRUBIN,TOTAL 0.4 mg/dL (0.0-1.0); CALCIUM 8.9 mg/dL (8.4-10.2); CREATININE, serum 0.77 (0.52-1.25); POTASSIUM 4.1 mmol/L (3.4-5.0); TOTAL PROTEIN 6.6 gm/dL (6.4-8.2)
[2020-10-02 10:21] LABS: BAND 7 % (0-10); EOSINOPHIL 2 % (0-4); LYMPHOCYTE 20 % (20.0-51.0); NEUTROPHILS 65 % (42.0-75.2)
[2020-10-02 10:22] LABS: PLATELET ESTIMATE NORMAL (NORMAL)
[2020-10-02 10:23] LABS: ANISOCYTOSIS 2+
[2020-10-09 09:32] VITALS: BP 104/65; PULSE 73; TEMP 97.8
[2020-10-09 09:39] LABS: HEMOGLOBIN 10.4 g/dl (12.5-16.0); MEAN CELL VOLUME 103 fl (80.0-100.0); MEAN CORPUSCULAR HEMOGLOBIN 34 pg (27.0-31.0); MEAN CORPUSCULAR HGB CONC 33 g/dl (33.0-37.0); PLATELET COUNT 289 K/mm3 (130-400); RED BLOOD COUNT 3.04 M/mm3 (4.10-5.30); REDCELL DISTRIBUTION WIDTH-CV 14.9 % (11.5-14.5)
[2020-10-09 09:44] LABS: HEMATOCRIT 31.2 % (37.0-47.0)
[2020-10-09 09:46] LABS: ALBUMIN 3.8 gm/dL (3.5-5.0); BILIRUBIN,TOTAL 0.4 mg/dL (0.0-1.0); CALCIUM 8.6 mg/dL (8.4-10.2); CREATININE, serum 0.82 (0.52-1.25); MAGNESIUM 2.3 mg/dL (1.6-2.3); POTASSIUM 3.7 mmol/L (3.4-5.0); TOTAL PROTEIN 6.6 gm/dL (6.4-8.2)
[2020-10-09 11:03] LABS: BAND 22 % (0-10); BASOPHIL 1 % (0-2); LYMPHOCYTE 5 % (20.0-51.0); NEUTROPHILS 70 % (42.0-75.2); PLATELET ESTIMATE NORMAL (NORMAL)
[2020-10-16 09:14] VITALS: BP 122/71; PULSE 60; TEMP 98.1
[2020-10-16 09:32] LABS: MEAN CELL VOLUME 101 fl (80.0-100.0); MEAN CORPUSCULAR HGB CONC 33 g/dl (33.0-37.0); MEAN PLATELET VOLUME 10.3 fl (7.4-10.4); PLATELET COUNT 107 K/mm3 (130-400); RED BLOOD COUNT 2.89 M/mm3 (4.10-5.30); REDCELL DISTRIBUTION WIDTH-CV 13.4 % (11.5-14.5)
[2020-10-16 09:35] LABS: ALBUMIN 3.7 gm/dL (3.5-5.0); BILIRUBIN,TOTAL 0.3 mg/dL (0.0-1.0); CALCIUM 8.6 mg/dL (8.4-10.2); CREATININE, serum 0.76 (0.52-1.25); POTASSIUM 4.2 mmol/L (3.4-5.0); TOTAL PROTEIN 6.6 gm/dL (6.4-8.2)
[2020-10-16 09:35] LABS: HEMATOCRIT 29.2 % (37.0-47.0); HEMOGLOBIN 9.6 g/dl (12.5-16.0); MEAN CORPUSCULAR HEMOGLOBIN 33 pg (27.0-31.0)
[2020-10-16 10:28] LABS: BAND 9 % (0-10); BASOPHIL 1 % (0-2); EOSINOPHIL 3 % (0-4); LYMPHOCYTE 19 % (20.0-51.0); NEUTROPHILS 64 % (42.0-75.2)
[2020-10-16 10:29] LABS: HYPOCHROMIA 1+; PLATELET ESTIMATE NORMAL (NORMAL)
[2020-10-23 09:41] VITALS: BP 121/66; PULSE 69; TEMP 98.4
[2020-10-23 09:57] LABS: MEAN CELL VOLUME 99 fl (80.0-100.0); MEAN CORPUSCULAR HGB CONC 34 g/dl (33.0-37.0); MEAN PLATELET VOLUME 10.1 fl (7.4-10.4); PLATELET COUNT 163 K/mm3 (130-400); RED BLOOD COUNT 2.94 M/mm3 (4.10-5.30); REDCELL DISTRIBUTION WIDTH-CV 13.7 % (11.5-14.5)
[2020-10-23 10:04] LABS: ALBUMIN 3.8 gm/dL (3.5-5.0); BILIRUBIN,TOTAL 0.3 mg/dL (0.0-1.0); CALCIUM 8.9 mg/dL (8.4-10.2); CREATININE, serum 0.77 (0.52-1.25); HEMATOCRIT 29.1 % (37.0-47.0); HEMOGLOBIN 9.8 g/dl (12.5-16.0); MAGNESIUM 1.9 mg/dL (1.6-2.3); MEAN CORPUSCULAR HEMOGLOBIN 33 pg (27.0-31.0); TOTAL PROTEIN 6.8 gm/dL (6.4-8.2)
[2020-10-23 10:35] LABS: BAND 12 % (0-10); LYMPHOCYTE 8 % (20.0-51.0); NEUTROPHILS 74 % (42.0-75.2)
[2020-10-23 10:36] LABS: PLATELET ESTIMATE NORMAL (NORMAL)
[~2020-10-30] VITALS: Ht 162.6 cm; Wt 62.8 kg
[~2020-10-30 09:00] MED LIST changes: +BENADRYL25 M2 PO; +FLONASEALLERGY NS
[2020-10-30 09:30] VITALS: BP 109/49; PULSE 73; TEMP 98.5
[2020-10-30 09:45] LABS: ALBUMIN 3.7 gm/dL (3.5-5.0); BILIRUBIN,TOTAL 0.4 mg/dL (0.0-1.0); CALCIUM 8.7 mg/dL (8.4-10.2); CREATININE, serum 0.84 (0.52-1.25); MAGNESIUM 2.2 mg/dL (1.6-2.3); POTASSIUM 3.7 mmol/L (3.4-5.0); TOTAL PROTEIN 6.6 gm/dL (6.4-8.2)
[2020-10-30 09:47] LABS: HEMOGLOBIN 10.3 g/dl (12.5-16.0); MEAN CELL VOLUME 101 fl (80.0-100.0); MEAN CORPUSCULAR HEMOGLOBIN 34 pg (27.0-31.0); MEAN CORPUSCULAR HGB CONC 33 g/dl (33.0-37.0); MEAN PLATELET VOLUME 8.9 fl (7.4-10.4); PLATELET COUNT 374 K/mm3 (130-400); RED BLOOD COUNT 3.06 M/mm3 (4.10-5.30); REDCELL DISTRIBUTION WIDTH-CV 14.7 % (11.5-14.5)
[2020-10-30 09:52] LABS: HEMATOCRIT 30.9 % (37.0-47.0)
[2020-10-30 10:24] LABS: BAND 13 % (0-10); LYMPHOCYTE 2 % (20.0-51.0); NEUTROPHILS 84 % (42.0-75.2); OVALOCYTES 1+; PLATELET ESTIMATE NORMAL (NORMAL)
== END 2020-11-04 | disposition home or self-care (01) ==
LOC: EUO
PROVIDERS: Internal Medicine
DX: C54.2 Malignant neoplasm of myometrium (principal); C78.6 Secondary malignant neoplasm of retroperitoneum and peritoneum; D70.2 Other drug-induced agranulocytosis; E03.9 Hypothyroidism, unspecified
CPT/HCPCS: J1644

== ENCOUNTER → 2020-12-24 | Outpatient (CLI) | payer MEDICARE, OTHER ==
[~2020-12-24] MED LIST changes: +BENTYL 10MG10 MG/CAP PO; +FLOMAX 0.40.4 MG/CAP PO; +HALAVEN0.5 MG/ML; +NEULASTA O6 MG/0.6 M; +TYLENOL 500MG500 MG PO; +ULTRAM 50MG TAB50 MG PO
== END ==
LOC: COL.CARD 10:59
DX: C54.2 Malignant neoplasm of myometrium (principal)

== ENCOUNTER 2021-01-17 09:58 | Day surgery (SDC) | payer MEDICARE, OTHER ==
[2006-01-22 05:56] VITALS: BP 135/74
[~2021-01-17] VITALS: Ht 162.6 cm; Wt 61.1 kg
[~2021-01-17 09:58] MED LIST changes: -BENTYL 10MG10 MG/CAP PO; -FLOMAX 0.40.4 MG/CAP PO; -HALAVEN0.5 MG/ML; -NEULASTA O6 MG/0.6 M; -TYLENOL 500MG500 MG PO; -ULTRAM 50MG TAB50 MG PO
[2021-01-17] MEDS ORDERED: NEULASTA O6 MG/0.6 M (10:23)
[2021-01-17] MEDS ORDERED: HALAVEN0.5 MG/ML (10:25)
[2021-01-17] MEDS ORDERED: TYLENOL 500MG500 MG PO (10:26)
[2021-01-17 11:00] VITALS: BP 137/53; PULSE 77; TEMP 98.1
[2021-01-17 11:59] VITALS: BP 129/58; PULSE 63; TEMP 98.2
--- NOTE | 2021-01-17 11:59 | NUR ---
PT RETURNS [place] [facility] FROM PACU ACCOMPANIED BY HANSA NORMAN. PT ALERT AND ORIENTED. DENIES PAIN AND NAUSEA. SIPPING ON WATER. VITALS STABLE. PT DENIES NEEDS AT THIS TIME. CALL LIGHT IN REACH.
--- NOTE | 2021-01-17 12:05 | NUR ---
PT AMBULATES TO RESTROOM WITH STANDBY ASSIST. VOIDS LARGE AMOUNT OF URINE WITH SMALL AMOUNT OF BLOOD PRESENT IN URINE. PT RETURNS TO BED, DENIES FURTHER NEEDS OR COMPLAINTS. CALL LIGHT IN REACH.
[2021-01-17 12:10] VITALS: BP 134/57; PULSE 64
--- NOTE | 2021-01-17 12:10 | NUR ---
PT RESTING IN BED, TOAST PROVIDED. PT DENIES FURTHER NEEDS OR COMPLAINTS AT THIS TIME. DENIES PAIN OR NAUSEA. CALL LIGHT IN REACH.
[2021-01-17 12:25] VITALS: BP 126/54; PULSE 86
[2021-01-17 12:40] VITALS: BP 126/54; PULSE 68
--- NOTE | 2021-01-17 12:40 | NUR ---
PT'S MOON CENTRAL LINE SALINE FLUSHED AND HEPARIN LOCKED PER TORB FROM DR. KING. PT TO RESTROOM. RETURNS TO ROOM, CHANGES OUT OF GOWN. TEGADERM PLACED OVER CENTRAL LINE PER PT REQUEST. PT RESTING AT SIDE OF BED, DENIES PAIN OR NAUSEA. DENIES FURTHER NEEDS. CALL LIGHT IN REACH.
[2021-01-17 12:54] VITALS: BP 132/62; PULSE 62
--- NOTE | 2021-01-17 13:25 | NUR ---
PT DISCHARGED VIA WHEELCHAIR TO PRIVATE VEHICLE. PT'S SPOUSE DRIVING PT HOME. BELONGINGS AND DISCHARGE INSTRUCTIONS SENT HOME WITH PATIENT.
== END 2021-01-17 13:25 | disposition home or self-care (01) ==
LOC: SDCO 09:58
DX: N13.1 Hydronephrosis with ureteral stricture, not elsewhere classified (principal); E03.9 Hypothyroidism, unspecified; I10 Essential (primary) hypertension; Z90.710 Acquired absence of both cervix and uterus; Z90.89 Acquired absence of other organs; Z20.822 Contact with and (suspected) exposure to COVID-19; Z85.831 Personal history of malignant neoplasm of soft tissue; Z79.890 Hormone replacement therapy; Z79.899 Other long term (current) drug therapy; Z85.3 Personal history of malignant neoplasm of breast; Z88.8 Allergy status to other drugs, medicaments and biological substances; Z85.850 Personal history of malignant neoplasm of thyroid; Z80.42 Family history of malignant neoplasm of prostate
CPT/HCPCS: C1769; C2617; J0690; J1100; J1644; J2405; J2704; J3010; J7120

== ENCOUNTER 2021-01-29 09:00 | Outpatient (RCR) | payer MEDICARE, OTHER ==
[2006-01-22 05:56] VITALS: BP 135/74
[2020-11-06 10:03] LABS: MEAN CELL VOLUME 98 fl (80.0-100.0); MEAN CORPUSCULAR HGB CONC 34 g/dl (33.0-37.0); MEAN PLATELET VOLUME 9.9 fl (7.4-10.4); PLATELET COUNT 93 K/mm3 (130-400); RED BLOOD COUNT 2.76 M/mm3 (4.10-5.30); REDCELL DISTRIBUTION WIDTH-CV 13.6 % (11.5-14.5)
[2020-11-06 10:04] VITALS: BP 117/70; PULSE 68; TEMP 98.7
[2020-11-06 10:09] LABS: ALBUMIN 3.6 gm/dL (3.5-5.0); BILIRUBIN,TOTAL 0.3 mg/dL (0.0-1.0); CALCIUM 8.7 mg/dL (8.4-10.2); CREATININE, serum 0.71 (0.52-1.25); MAGNESIUM 1.9 mg/dL (1.6-2.3); POTASSIUM 4.1 mmol/L (3.4-5.0); TOTAL PROTEIN 6.4 gm/dL (6.4-8.2)
[2020-11-06 10:11] LABS: HEMOGLOBIN 9.1 g/dl (12.5-16.0); MEAN CORPUSCULAR HEMOGLOBIN 33 pg (27.0-31.0)
[2020-11-06 10:40] LABS: BAND 13 % (0-10); EOSINOPHIL 2 % (0-4); LYMPHOCYTE 23 % (20.0-51.0); NEUTROPHILS 58 % (42.0-75.2)
[2020-11-06 10:41] LABS: PLATELET ESTIMATE DECREASED (NORMAL)
[2020-11-12 09:36] LABS: MEAN CELL VOLUME 99 fl (80.0-100.0); MEAN CORPUSCULAR HGB CONC 34 g/dl (33.0-37.0); MEAN PLATELET VOLUME 10.5 fl (7.4-10.4); PLATELET COUNT 102 K/mm3 (130-400); REDCELL DISTRIBUTION WIDTH-CV 13.8 % (11.5-14.5)
[2020-11-12 09:37] LABS: HEMATOCRIT 27.7 % (37.0-47.0); HEMOGLOBIN 9.4 g/dl (12.5-16.0); MEAN CORPUSCULAR HEMOGLOBIN 34 pg (27.0-31.0)
[2020-11-12 09:40] VITALS: BP 139/69; PULSE 64; TEMP 98
[2020-11-12 09:46] LABS: ALBUMIN 3.7 gm/dL (3.5-5.0); BILIRUBIN,TOTAL 0.3 mg/dL (0.0-1.0); CREATININE, serum 0.77 (0.52-1.25); TOTAL PROTEIN 6.8 gm/dL (6.4-8.2)
[2020-11-12 10:11] LABS: BAND 17 % (0-10); EOSINOPHIL 3 % (0-4); LYMPHOCYTE 16 % (20.0-51.0); NEUTROPHILS 60 % (42.0-75.2); PLATELET ESTIMATE DECREASED (NORMAL)
[2020-11-20 08:34] LABS: MEAN CELL VOLUME 101 fl (80.0-100.0); MEAN CORPUSCULAR HGB CONC 33 g/dl (33.0-37.0); MEAN PLATELET VOLUME 9.4 fl (7.4-10.4); PLATELET COUNT 343 K/mm3 (130-400); RED BLOOD COUNT 2.91 M/mm3 (4.10-5.30); REDCELL DISTRIBUTION WIDTH-CV 16.2 % (11.5-14.5)
[2020-11-20 08:36] VITALS: BP 124/63; PULSE 81; TEMP 98.5
[2020-11-20 08:38] LABS: ALBUMIN 3.7 gm/dL (3.5-5.0); BILIRUBIN,TOTAL 0.4 mg/dL (0.0-1.0); CALCIUM 8.6 mg/dL (8.4-10.2); CREATININE, serum 0.82 (0.52-1.25); MAGNESIUM 2.1 mg/dL (1.6-2.3); POTASSIUM 3.5 mmol/L (3.4-5.0); TOTAL PROTEIN 6.5 gm/dL (6.4-8.2)
[2020-11-20 09:23] LABS: HEMATOCRIT 29.5 % (37.0-47.0); HEMOGLOBIN 9.7 g/dl (12.5-16.0); MEAN CORPUSCULAR HEMOGLOBIN 33 pg (27.0-31.0)
[2020-11-20 09:31] LABS: BAND 17 % (0-10); LYMPHOCYTE 8 % (20.0-51.0); NEUTROPHILS 75 % (42.0-75.2)
[2020-11-20 09:38] LABS: ANISOCYTOSIS 1+; HYPOCHROMIA 1+; MICROCYTOSIS 1+; PLATELET ESTIMATE NORMAL (NORMAL)
[2020-11-27 09:51] VITALS: BP 122/66; PULSE 76; TEMP 98.5
[2020-11-27 14:07] LABS: MEAN CELL VOLUME 101 fl (80.0-100.0); MEAN CORPUSCULAR HGB CONC 33 g/dl (33.0-37.0); MEAN PLATELET VOLUME 10.8 fl (7.4-10.4); PLATELET COUNT 91 K/mm3 (130-400); REDCELL DISTRIBUTION WIDTH-CV 15.2 % (11.5-14.5)
[2020-11-27 14:11] LABS: ALBUMIN 3.6 gm/dL (3.5-5.0); BILIRUBIN,TOTAL 0.4 mg/dL (0.0-1.0); CALCIUM 8.7 mg/dL (8.4-10.2); CREATININE, serum 0.71 (0.52-1.25); POTASSIUM 3.7 mmol/L (3.4-5.0); TOTAL PROTEIN 6.5 gm/dL (6.4-8.2)
[2020-11-27 14:13] LABS: HEMATOCRIT 28.3 % (37.0-47.0); HEMOGLOBIN 9.3 g/dl (12.5-16.0); MEAN CORPUSCULAR HEMOGLOBIN 33 pg (27.0-31.0)
[2020-11-27 15:15] LABS: BAND 3 % (0-10); EOSINOPHIL 2 % (0-4); LYMPHOCYTE 30 % (20.0-51.0); NEUTROPHILS 60 % (42.0-75.2)
[2020-11-27 15:16] LABS: PLATELET ESTIMATE DECREASED (NORMAL)
[2020-11-27 15:17] LABS: ANISOCYTOSIS 1+; HYPOCHROMIA 1+
[2020-12-04 09:35] VITALS: BP 121/62; PULSE 68; TEMP 98.8
[2020-12-04 09:44] LABS: ALBUMIN 3.8 gm/dL (3.5-5.0); BILIRUBIN,TOTAL 0.4 mg/dL (0.0-1.0); CALCIUM 8.7 mg/dL (8.4-10.2); CREATININE, serum 0.77 (0.52-1.25); MEAN CELL VOLUME 98 fl (80.0-100.0); MEAN CORPUSCULAR HGB CONC 34 g/dl (33.0-37.0); POTASSIUM 3.8 mmol/L (3.4-5.0); TOTAL PROTEIN 6.8 gm/dL (6.4-8.2)
[2020-12-04 11:19] LABS: EOSINOPHIL 3 % (0-4)
[2020-12-04 11:59] LABS: BAND 13 % (0-10); LYMPHOCYTE 7 % (20.0-51.0); NEUTROPHILS 70 % (42.0-75.2)
[2020-12-04 12:01] LABS: PLATELET ESTIMATE NORMAL (NORMAL)
[2020-12-04 12:10] LABS: RED BLOOD COUNT 2.68 M/mm3 (4.10-5.30)
[2020-12-04 12:11] LABS: HEMATOCRIT 26.2 % (37.0-47.0); HEMOGLOBIN 8.9 g/dl (12.5-16.0); MEAN CORPUSCULAR HEMOGLOBIN 33 pg (27.0-31.0); REDCELL DISTRIBUTION WIDTH-CV 15.5 % (11.5-14.5)
[2020-12-04 12:12] LABS: MEAN PLATELET VOLUME 10.9 fl (7.4-10.4); PLATELET COUNT 102 K/mm3 (130-400)
[2020-12-11 09:31] VITALS: BP 148/77; PULSE 91; TEMP 98.4
[2020-12-11 09:36] LABS: MEAN CELL VOLUME 97 fl (80.0-100.0); MEAN CORPUSCULAR HEMOGLOBIN 34 pg (27.0-31.0); MEAN CORPUSCULAR HGB CONC 35 g/dl (33.0-37.0); MEAN PLATELET VOLUME 9.5 fl (7.4-10.4); PLATELET COUNT 252 K/mm3 (130-400); RED BLOOD COUNT 2.98 M/mm3 (4.10-5.30); REDCELL DISTRIBUTION WIDTH-CV 15.9 % (11.5-14.5)
[2020-12-11 09:38] LABS: HEMATOCRIT 28.9 % (37.0-47.0)
[2020-12-11 09:42] LABS: ALBUMIN 3.8 gm/dL (3.5-5.0); BILIRUBIN,TOTAL 0.5 mg/dL (0.0-1.0); CALCIUM 8.7 mg/dL (8.4-10.2); CREATININE, serum 0.75 (0.52-1.25); POTASSIUM 3.7 mmol/L (3.4-5.0); TOTAL PROTEIN 6.9 gm/dL (6.4-8.2)
[2020-12-11 10:01] LABS: BAND 30 % (0-10); EOSINOPHIL 3 % (0-4); LYMPHOCYTE 5 % (20.0-51.0); NEUTROPHILS 55 % (42.0-75.2); PLATELET ESTIMATE NORMAL (NORMAL)
[2020-12-11 10:02] LABS: ANISOCYTOSIS 1+
[2020-12-18 09:30] LABS: HEMOGLOBIN 10.2 g/dl (12.5-16.0); MEAN CELL VOLUME 97 fl (80.0-100.0); MEAN CORPUSCULAR HEMOGLOBIN 33 pg (27.0-31.0); MEAN CORPUSCULAR HGB CONC 34 g/dl (33.0-37.0); MEAN PLATELET VOLUME 9.5 fl (7.4-10.4); PLATELET COUNT 198 K/mm3 (130-400); RED BLOOD COUNT 3.12 M/mm3 (4.10-5.30); REDCELL DISTRIBUTION WIDTH-CV 15.5 % (11.5-14.5)
[2020-12-18 09:32] LABS: HEMATOCRIT 30.4 % (37.0-47.0)
[2020-12-18 09:39] VITALS: BP 109/58; PULSE 88; TEMP 98.6
[2020-12-18 09:39] LABS: ALBUMIN 3.9 gm/dL (3.5-5.0); BILIRUBIN,TOTAL 0.7 mg/dL (0.0-1.0); CALCIUM 9.1 mg/dL (8.4-10.2); CREATININE, serum 0.7 (0.52-1.25); POTASSIUM 3.8 mmol/L (3.4-5.0)
[2020-12-18 10:13] LABS: BAND 4 % (0-10); BASOPHIL 1 % (0-2); EOSINOPHIL 1 % (0-4); LYMPHOCYTE 12 % (20.0-51.0); NEUTROPHILS 79 % (42.0-75.2); PLATELET ESTIMATE NORMAL (NORMAL)
[2020-12-18 10:14] LABS: ANISOCYTOSIS 1+
[2020-12-24 11:45] VITALS: BP 134/72; PULSE 78; TEMP 98.4
[2020-12-24 12:26] LABS: ALBUMIN 3.9 gm/dL (3.5-5.0); BILIRUBIN,TOTAL 0.4 mg/dL (0.0-1.0); CALCIUM 9.2 mg/dL (8.4-10.2); CREATININE, serum 0.77 (0.52-1.25)
[2020-12-24 12:34] LABS: MEAN CELL VOLUME 101 fl (80.0-100.0); MEAN CORPUSCULAR HGB CONC 33 g/dl (33.0-37.0); MEAN PLATELET VOLUME 10.5 fl (7.4-10.4); PLATELET COUNT 173 K/mm3 (130-400); RED BLOOD COUNT 3.01 M/mm3 (4.10-5.30); REDCELL DISTRIBUTION WIDTH-CV 17.2 % (11.5-14.5)
[2020-12-24 12:41] LABS: HEMATOCRIT 30.5 % (37.0-47.0); HEMOGLOBIN 9.9 g/dl (12.5-16.0); MEAN CORPUSCULAR HEMOGLOBIN 33 pg (27.0-31.0)
[2020-12-24 13:34] LABS: BAND 21 % (0-10); METAMYELOCYTE 2 % (0-0); NUCLEATED RED BLOOD CELL 2 (0-6)
[2020-12-24 13:35] LABS: ANISOCYTOSIS 1+; HYPOCHROMIA 1+; LYMPHOCYTE 9 % (20.0-51.0); NEUTROPHILS 58 % (42.0-75.2); PLATELET ESTIMATE NORMAL (NORMAL)
[2020-12-24 13:39] LABS: OVALOCYTES 1+
[2021-01-08 09:50] VITALS: BP 136/76; PULSE 72; TEMP 98.6
[2021-01-16 09:14] LABS: HEMOGLOBIN 10.3 g/dl (12.5-16.0); MEAN CELL VOLUME 99 fl (80.0-100.0); MEAN CORPUSCULAR HEMOGLOBIN 32 pg (27.0-31.0); MEAN CORPUSCULAR HGB CONC 32 g/dl (33.0-37.0); MEAN PLATELET VOLUME 10.1 fl (7.4-10.4); PLATELET COUNT 135 K/mm3 (130-400); RED BLOOD COUNT 3.23 M/mm3 (4.10-5.30); REDCELL DISTRIBUTION WIDTH-CV 16.9 % (11.5-14.5)
[2021-01-16 09:25] LABS: ALBUMIN 3.6 gm/dL (3.5-5.0); BILIRUBIN,TOTAL 0.3 mg/dL (0.0-1.0); CALCIUM 8.7 mg/dL (8.4-10.2); CREATININE, serum 0.8 (0.52-1.25); MAGNESIUM 1.8 mg/dL (1.6-2.3); POTASSIUM 3.5 mmol/L (3.4-5.0); TOTAL PROTEIN 6.7 gm/dL (6.4-8.2)
[2021-01-16 09:26] VITALS: BP 108/63; PULSE 81; TEMP 98.1
[2021-01-16 09:40] LABS: ANISOCYTOSIS 1+; BAND 2 % (0-10); BASOPHIL 1 % (0-2); HYPOCHROMIA 1+; LYMPHOCYTE 3 % (20.0-51.0); METAMYELOCYTE 2 % (0-0); MYELOCYTE 3 % (0-0); NEUTROPHILS 83 % (42.0-75.2); PLATELET ESTIMATE NORMAL (NORMAL)
[2021-01-16 09:41] LABS: POLYCHROMASIA 1+
[2021-01-23 10:34] VITALS: BP 106/66; PULSE 70; TEMP 98.5
[2021-01-23 10:39] LABS: HEMOGLOBIN 10.2 g/dl (12.5-16.0); MEAN CELL VOLUME 100 fl (80.0-100.0); MEAN CORPUSCULAR HEMOGLOBIN 32 pg (27.0-31.0); MEAN CORPUSCULAR HGB CONC 32 g/dl (33.0-37.0); MEAN PLATELET VOLUME 9.6 fl (7.4-10.4); PLATELET COUNT 226 K/mm3 (130-400); RED BLOOD COUNT 3.15 M/mm3 (4.10-5.30); REDCELL DISTRIBUTION WIDTH-CV 16.9 % (11.5-14.5)
[2021-01-23 10:49] LABS: ALBUMIN 3.6 gm/dL (3.5-5.0); BILIRUBIN,TOTAL 0.4 mg/dL (0.0-1.0); CALCIUM 8.4 mg/dL (8.4-10.2); CREATININE, serum 0.7 (0.52-1.25); MAGNESIUM 2.4 mg/dL (1.6-2.3); POTASSIUM 4.3 mmol/L (3.4-5.0); TOTAL PROTEIN 7.2 gm/dL (6.4-8.2)
[2021-01-23 11:01] LABS: HEMATOCRIT 31.6 % (37.0-47.0)
[2021-01-23 11:05] LABS: BAND 10 % (0-10); LYMPHOCYTE 18 % (20.0-51.0); NEUTROPHILS 69 % (42.0-75.2); PLATELET ESTIMATE NORMAL (NORMAL)
[~2021-01-29] VITALS: Ht 162.6 cm; Wt 60.9 kg
[~2021-01-29 09:00] MED LIST changes: +HALAVEN0.5 MG/ML; +MASON NATURAL2000 IU PO; +NEULASTA O6 MG/0.6 M; -SYNTHROID0.05 MG/TA PO; +TYLENOL 500MG500 MG PO; -VITAMIN D31000 IU PO
[2021-01-29 09:06] VITALS: BP 109/48; PULSE 77; TEMP 98.2
[2021-01-29 09:31] LABS: HEMOGLOBIN 10.7 g/dl (12.5-16.0); MEAN CELL VOLUME 100 fl (80.0-100.0); MEAN CORPUSCULAR HEMOGLOBIN 32 pg (27.0-31.0); MEAN CORPUSCULAR HGB CONC 32 g/dl (33.0-37.0); MEAN PLATELET VOLUME 9.6 fl (7.4-10.4); PLATELET COUNT 147 K/mm3 (130-400); RED BLOOD COUNT 3.31 M/mm3 (4.10-5.30); REDCELL DISTRIBUTION WIDTH-CV 16.2 % (11.5-14.5)
[2021-01-29 09:33] LABS: ALBUMIN 3.7 gm/dL (3.5-5.0); BILIRUBIN,TOTAL 0.4 mg/dL (0.0-1.0); CALCIUM 8.8 mg/dL (8.4-10.2); CREATININE, serum 0.74 (0.52-1.25); MAGNESIUM 2.2 mg/dL (1.6-2.3); POTASSIUM 3.7 mmol/L (3.4-5.0); TOTAL PROTEIN 7.3 gm/dL (6.4-8.2)
[2021-01-29 09:56] LABS: ANISOCYTOSIS 1+; BASOPHIL 3 % (0-2); EOSINOPHIL 3 % (0-4); LYMPHOCYTE 16 % (20.0-51.0); NEUTROPHILS 67 % (42.0-75.2); PLATELET ESTIMATE NORMAL (NORMAL)
[2021-01-29 09:57] LABS: HYPOCHROMIA 2+
== END 2021-02-04 | disposition home or self-care (01) ==
LOC: EUO
PROVIDERS: Internal Medicine
DX: C54.2 Malignant neoplasm of myometrium (principal); C78.6 Secondary malignant neoplasm of retroperitoneum and peritoneum; Z95.9 Presence of cardiac and vascular implant and graft, unspecified
CPT/HCPCS: J1644

== ENCOUNTER 2021-02-16 03:14 | Emergency (ER) | payer MEDICARE, OTHER ==
[2006-01-22 05:56] VITALS: BP 135/74
[~2021-02-16] VITALS: Ht 162.6 cm; Wt 59.1 kg
[2021-02-16 03:26] VITALS: TEMP 98
[2021-02-16 04:00] LABS: BASO % 0.3 % (0.0-2.0); GRAN # 7.9 (1.4-6.5); GRAN % 85.2 % (42.2-75.2); HEMOGLOBIN 11.5 g/dl (12.5-16.0); LYMPH # 0.9 (1.2-3.4); LYMPH % 9.9 % (20.0-51.0); MEAN CELL VOLUME 99 fl (80.0-100.0); MEAN CORPUSCULAR HEMOGLOBIN 32 pg (27.0-31.0); MEAN CORPUSCULAR HGB CONC 32 g/dl (33.0-37.0); MEAN PLATELET VOLUME 10.7 fl (7.4-10.4); MONO # 0.4 (0.1-0.6); MONO % 3.8 % (1.7-9.3); PLATELET COUNT 183 K/mm3 (130-400); RED BLOOD COUNT 3.65 M/mm3 (4.10-5.30); REDCELL DISTRIBUTION WIDTH-CV 15.8 % (11.5-14.5)
[2021-02-16 04:12] LABS: ALBUMIN 4.2 gm/dL (3.5-5.0); BILIRUBIN,TOTAL 0.4 mg/dL (0.0-1.0); CALCIUM 9.2 mg/dL (8.4-10.2); CREATININE, serum 0.71 (0.52-1.25); POTASSIUM 3.8 mmol/L (3.4-5.0); TOTAL PROTEIN 8.4 gm/dL (6.4-8.2)
[2021-02-16 04:32] LABS: COLLECTION METHOD CLEAN CATCH
[2021-02-16 04:44] LABS: MUCOUS Present /lpf; PH 6 (5-8); SQUAMOUS EPITHELIAL 0-2 /hpf; URINE APPEARANCE Hazy; URINE BACTERIA None Seen /hpf; URINE BILIRUBIN Negative (NEGATIVE); URINE BLOOD 3+ (NEGATIVE); URINE COLOR Yellow; URINE GLUCOSE Negative (NEGATIVE); URINE KETONE Negative (NEGATIVE); URINE LEUKOCYTE ESTERASE Trace (NEGATIVE); URINE NITRATE Negative (NEGATIVE); URINE PROTEIN(semi-quant) 2+ (NEGATIVE); URINE RBC >50 /hpf; URINE UROBILINOGEN Negative (NEGATIVE)
[2021-02-16] MEDS ORDERED: FLOMAX 0.40.4 MG/CAP PO (06:19)
[2021-02-16] MEDS ORDERED: ULTRAM 50MG TAB50 MG PO (06:19)
[2021-02-16 06:30] VITALS: BP 150/69; PULSE 58
== END 2021-02-16 06:30 | disposition home or self-care (01) ==
LOC: COL.ER 03:14
PROVIDERS: Emergency Medicine
DX: R10.32 Left lower quadrant pain (principal); Z85.831 Personal history of malignant neoplasm of soft tissue; Z88.8 Allergy status to other drugs, medicaments and biological substances
CPT/HCPCS: Q9967

== ENCOUNTER 2021-02-18 09:00 | Outpatient (RCR) | payer MEDICARE, OTHER ==
[2006-01-22 05:56] VITALS: BP 135/74
[2021-02-05 09:31] VITALS: BP 150/72; PULSE 86; TEMP 98.5
[2021-02-05 09:38] LABS: ALBUMIN 3.5 gm/dL (3.5-5.0); BILIRUBIN,TOTAL 0.7 mg/dL (0.0-1.0); CALCIUM 8.7 mg/dL (8.4-10.2); CREATININE, serum 0.63 (0.52-1.25); MEAN CELL VOLUME 99 fl (80.0-100.0); MEAN CORPUSCULAR HEMOGLOBIN 32 pg (27.0-31.0); MEAN CORPUSCULAR HGB CONC 33 g/dl (33.0-37.0); MEAN PLATELET VOLUME 10.3 fl (7.4-10.4); PLATELET COUNT 136 K/mm3 (130-400); POTASSIUM 3.5 mmol/L (3.4-5.0); RED BLOOD COUNT 3.11 M/mm3 (4.10-5.30); REDCELL DISTRIBUTION WIDTH-CV 15.6 % (11.5-14.5); TOTAL PROTEIN 6.9 gm/dL (6.4-8.2)
[2021-02-05 09:49] LABS: HEMATOCRIT 30.7 % (37.0-47.0)
[2021-02-05 10:02] LABS: BAND 30 % (0-10); EOSINOPHIL 1 % (0-4); LYMPHOCYTE 7 % (20.0-51.0); NEUTROPHILS 61 % (42.0-75.2)
[2021-02-05 10:03] LABS: OVALOCYTES 1+; PLATELET ESTIMATE NORMAL (NORMAL); TEAR DROP CELLS 1+
[2021-02-12 10:21] LABS: HEMATOCRIT 33.1 % (37.0-47.0); HEMOGLOBIN 10.6 g/dl (12.5-16.0); MEAN CELL VOLUME 100 fl (80.0-100.0); MEAN CORPUSCULAR HEMOGLOBIN 32 pg (27.0-31.0); MEAN CORPUSCULAR HGB CONC 32 g/dl (33.0-37.0); MEAN PLATELET VOLUME 11.4 fl (7.4-10.4); PLATELET COUNT 138 K/mm3 (130-400); RED BLOOD COUNT 3.32 M/mm3 (4.10-5.30); REDCELL DISTRIBUTION WIDTH-CV 16.5 % (11.5-14.5)
[2021-02-12 10:24] LABS: ALBUMIN 3.8 gm/dL (3.5-5.0); BILIRUBIN,TOTAL 0.2 mg/dL (0.0-1.0); CREATININE, serum 0.71 (0.52-1.25); MAGNESIUM 2.1 mg/dL (1.6-2.3); POTASSIUM 4.1 mmol/L (3.4-5.0); TOTAL PROTEIN 7.4 gm/dL (6.4-8.2)
[2021-02-12 10:30] VITALS: BP 117/58; PULSE 61; TEMP 97.7
[2021-02-12 10:35] LABS: BAND 13 % (0-10); LYMPHOCYTE 10 % (20.0-51.0); NEUTROPHILS 72 % (42.0-75.2)
[2021-02-12 10:36] LABS: PLATELET ESTIMATE NORMAL (NORMAL)
[2021-02-12 10:37] LABS: OVALOCYTES 1+; TEAR DROP CELLS 1+
[~2021-02-18] VITALS: Ht 162.6 cm; Wt 60.9 kg
[~2021-02-18 09:00] MED LIST changes: +FLOMAX 0.40.4 MG/CAP PO; +ULTRAM 50MG TAB50 MG PO
[2021-02-18 09:40] VITALS: BP 134/75; PULSE 65; TEMP 98
--- NOTE | 2021-02-24 10:30 | NUR ---
Notified [facility] that she has gone into Hospice and the nurses there will do her dressing change. Also, she is having the Byrnes removed Wednesday March 03, 2021.
== END 2021-02-24 10:30 | disposition hospice, home (50) ==
LOC: EUO 09:00
PROVIDERS: Internal Medicine
DX: Z45.2 Encounter for adjustment and management of vascular access device (principal); D70.2 Other drug-induced agranulocytosis; C54.2 Malignant neoplasm of myometrium; C78.6 Secondary malignant neoplasm of retroperitoneum and peritoneum
CPT/HCPCS: J1644

== ENCOUNTER 2021-07-02 10:12 | Day surgery (SDC) | payer MEDICARE, OTHER ==
[2006-01-22 05:56] VITALS: BP 135/74
[~2021-07-02] VITALS: Ht 162.6 cm; Wt 62.1 kg
[2021-07-02 10:37] VITALS: BP 179/73; PULSE 59; TEMP 97.3
[2021-07-02 12:35] VITALS: BP 147/53; PULSE 54; TEMP 96.8
[2021-07-02 12:50] VITALS: BP 163/82; PULSE 51; TEMP 97
[2021-07-02 13:05] VITALS: BP 154/56; PULSE 55
--- NOTE | 2021-07-02 13:20 | NUR ---
1235: PATIENT ARRIVED BACK INTO [facility] FOLLOWING PACU. PATIENT ALERT AND ORIENTED. VITALLY STABLE. WENT TO RESTROOM. 1250: PATIENT VITALLY STABLE. CHANGED INTO CLOTHING. REQUESTING BLUEBERRY MUFFIN AND WATER, TOLERATED WELL. NO COMPLAINT OF PAIN OR NAUSEA. 1305: PATIENT VITALLY STABLE. REQUESTING TO LET KNOW SHE IS READY TO GO HOME. NOTIFIED AND IS ON HIS WAY. 1315: PATIENT ESCORTED TO PATIENT ENTRANCE VIA WHEELCHAIR. ARTHUR (SPOUSE) MET AT ENTRANCE AND HELPED INTO VEHICLE.
== END 2021-07-02 13:15 | disposition home or self-care (01) ==
LOC: SDCO 10:12
DX: N13.1 Hydronephrosis with ureteral stricture, not elsewhere classified (principal); R35.1 Nocturia; R39.15 Urgency of urination; C49.9 Malignant neoplasm of connective and soft tissue, unspecified; I10 Essential (primary) hypertension; E89.0 Postprocedural hypothyroidism; M19.90 Unspecified osteoarthritis, unspecified site; Z20.822 Contact with and (suspected) exposure to COVID-19; Z79.899 Other long term (current) drug therapy; Z79.890 Hormone replacement therapy; Z79.891 Long term (current) use of opiate analgesic
CPT/HCPCS: C1769; C2617; J0690; J2405; J2704; J3010; J7120

== ENCOUNTER 2021-09-21 12:09 | Emergency (ER) | payer MEDICARE, OTHER ==
[~2021-09-21] VITALS: Ht 162.6 cm; Wt 62.7 kg
[2021-09-21 12:24] VITALS: TEMP 96.9
[2021-09-21 12:44] LABS: BASO % 0.4 % (0.0-2.0); EOS % 0.2 % (0-4.0); GRAN # 4.7 K/mm3 (1.4-6.5); GRAN % 86.2 % (42.2-75.2); HEMATOCRIT 45.8 % (37.0-47.0); HEMOGLOBIN 16.1 g/dl (12.5-16.0); LYMPH # 0.6 K/mm3 (1.2-3.4); LYMPH % 10.4 % (20.0-51.0); MEAN CELL VOLUME 87 fl (80.0-100.0); MEAN CORPUSCULAR HEMOGLOBIN 31 pg (27.0-31.0); MEAN CORPUSCULAR HGB CONC 35 g/dl (33.0-37.0); MEAN PLATELET VOLUME 8.8 fl (7.4-10.4); MONO # 0.1 K/mm3 (0.1-0.6); MONO % 2.6 % (1.7-9.3); PLATELET COUNT 224 K/mm3 (130-400); RED BLOOD COUNT 5.25 M/mm3 (4.10-5.30); REDCELL DISTRIBUTION WIDTH-CV 13.2 % (11.5-14.5)
[2021-09-21 13:00] LABS: ALBUMIN 4.2 gm/dL (3.4-4.8); ALKALINE PHOSPHATASE 75 U/L (40-150); ANION GAP 14 mmol/L (7-16); AST,SGOT 23 U/L (5-34); BILIRUBIN,TOTAL 0.7 mg/dL (0.2-1.2); BLOOD UREA NITROGEN 13 mg/dL (10-20); CALCIUM 9.9 mg/dL (8.4-10.2); CARBON DIOXIDE 19 mmol/L (23-31); CHLORIDE 105 mmol/L (98-107); CREATININE, serum 0.85 mg/dL (0.57-1.11); GLUCOSE 118 mg/dL (70-99); LIPASE < 10 U/L (8-78); POTASSIUM 3.9 mmol/L (3.5-4.5); SODIUM 138 mmol/L (136-145); TOTAL PROTEIN 8.1 gm/dL (6.2-8.1)
[2021-09-21 13:01] LABS: ALANINE AMINOTRANSFERASE < 6 U/L (0-55)
[2021-09-21 13:07] LABS: TROPONIN-I < 0.010 ng/mL (0.00-0.033)
[2021-09-21 13:54] LABS: COLLECTION METHOD CLEAN CATCH
[2021-09-21 14:01] LABS: PH 8 (5-8); SQUAMOUS EPITHELIAL 0-2 /hpf (0-10); URINE APPEARANCE Clear (CLEAR/HAZY); URINE BACTERIA None Seen (NONE SEEN); URINE BILIRUBIN Negative (NEGATIVE); URINE BLOOD Negative (NEGATIVE); URINE COLOR Straw (YELLOW); URINE GLUCOSE Negative (NEGATIVE); URINE KETONE Trace (NEGATIVE); URINE LEUKOCYTE ESTERASE Negative (NEGATIVE); URINE NITRATE Negative (NEGATIVE); URINE PROTEIN(semi-quant) Negative (NEGATIVE); URINE UROBILINOGEN Negative (NEGATIVE)
[2021-09-21] MEDS ORDERED: BENTYL 10MG10 MG/CAP PO (15:28)
[2021-09-21 15:48] VITALS: BP 145/72; PULSE 73
== END 2021-09-21 15:50 | disposition home or self-care (01) ==
LOC: COL.ER 12:09
PROVIDERS: Emergency Medicine
DX: K52.9 Noninfective gastroenteritis and colitis, unspecified (principal); E87.2 Acidosis
CPT/HCPCS: J2405; J7030; Q9967

== ENCOUNTER 2021-09-25 21:25 | Inpatient (IN) | payer MEDICARE, OTHER ==
[~2021-09-25] VITALS: Ht 162.6 cm; Wt 61.8 kg
[~2021-09-25 21:25] MED LIST changes: +BENTYL 10MG10 MG/CAP PO
[2021-09-25 22:53] LABS: HEMATOCRIT 40.2 % (37.0-47.0); MEAN CELL VOLUME 89 fl (80.0-100.0); MEAN CORPUSCULAR HEMOGLOBIN 31 pg (27.0-31.0); MEAN CORPUSCULAR HGB CONC 35 g/dl (33.0-37.0); PLATELET COUNT 183 K/mm3 (130-400); RED BLOOD COUNT 4.51 M/mm3 (4.10-5.30); REDCELL DISTRIBUTION WIDTH-CV 13.5 % (11.5-14.5)
[2021-09-25 23:17] LABS: COLLECTION METHOD CLEAN CATCH
[2021-09-25 23:17] LABS: ALANINE AMINOTRANSFERASE 6 U/L (0-55); ALBUMIN 3.4 gm/dL (3.4-4.8); ALKALINE PHOSPHATASE 72 U/L (40-150); ANION GAP 14 mmol/L (7-16); AST,SGOT 18 U/L (5-34); BILIRUBIN,TOTAL 0.8 mg/dL (0.2-1.2); BLOOD UREA NITROGEN 16 mg/dL (10-20); CALCIUM 8.4 mg/dL (8.4-10.2); CARBON DIOXIDE 18 mmol/L (23-31); CHLORIDE 105 mmol/L (98-107); CREATININE, serum 0.89 mg/dL (0.57-1.11); GLUCOSE 151 mg/dL (70-99); LIPASE < 10 U/L (8-78); POTASSIUM 3.5 mmol/L (3.5-4.5); SODIUM 137 mmol/L (136-145)
[2021-09-25 23:25] LABS: PROTHROMBIN TIME 11.5 SECONDS (9.7-12.8)
[2021-09-25 23:28] LABS: PARTIAL THROMBOPLASTIN TIME 24.8 SECONDS (26.0-37.0)
[2021-09-25 23:33] LABS: BUDDING YEAST Present (NOT PRESENT); PH 7 (5-8); SQUAMOUS EPITHELIAL None Seen /hpf (0-10); URINE APPEARANCE Clear (CLEAR/HAZY); URINE BACTERIA None Seen (NONE SEEN); URINE BILIRUBIN Negative (NEGATIVE); URINE BLOOD 3+ (NEGATIVE); URINE COLOR Yellow (YELLOW); URINE GLUCOSE Negative (NEGATIVE); URINE KETONE 1+ (NEGATIVE); URINE LEUKOCYTE ESTERASE Negative (NEGATIVE); URINE NITRATE Negative (NEGATIVE); URINE PROTEIN(semi-quant) 1+ (NEGATIVE); URINE RBC >50 /hpf (0-2); URINE UROBILINOGEN Negative (NEGATIVE)
[2021-09-25] MEDS ORDERED: ULTRAM 50MG TAB50 MG PO (23:42)
[2021-09-25] MEDS ORDERED: ZOFRAN 4MG T4 MG/TAB PO (23:43)
[2021-09-26 01:03] LABS: BAND 6 % (0-10); LYMPHOCYTE 8 % (20.0-51.0); NEUTROPHILS 84 % (42.0-75.2); PLATELET ESTIMATE NORMAL (NORMAL)
[2021-09-26 01:07] LABS: OVALOCYTES 1+
--- NOTE | 2021-09-26 01:20 | NUR ---
RECEIVED REPORT FROM DEWEY Ibarra RN. WAITING FOR PATIENT'S ARRIVAL FOR ADMIT TO ROOM 342.
--- NOTE | 2021-09-26 01:47 | NUR ---
PATIENT TO ROOM PER E.D. CART, TRANSPORTED BY E.D. PCT. PATIENT UP TO BATHROOM PER SELF WITH NO REPORTED C/O OR CONCERNS, OBSERVED MED RED DROPS ON FLOOR FOLLOWING PATIENT'S STEPS WITH BLOOD IN TOILET PRIOR TO BEING FLUSHED BY PATIENT. DENIES NAUSEA AT THIS TIME. REPORTS PAIN LEVEL 3-4/10 ACROSS LOWER ABD AT THIS TIME. REPORTS LLE NUMBNESS FROM CANCER, OBSERVING GAIT STEADY WHEN WALKING TO AND FROM BATHROOM TO BED.
[2021-09-26 03:59] VITALS: BP 134/62; PULSE 76; TEMP 98
[2021-09-26 06:49] LABS: HEMATOCRIT 41.1 % (37.0-47.0); MEAN CELL VOLUME 89 fl (80.0-100.0); MEAN CORPUSCULAR HEMOGLOBIN 30 pg (27.0-31.0); MEAN CORPUSCULAR HGB CONC 34 g/dl (33.0-37.0); MEAN PLATELET VOLUME 9.9 fl (7.4-10.4); PLATELET COUNT 207 K/mm3 (130-400); RED BLOOD COUNT 4.61 M/mm3 (4.10-5.30); REDCELL DISTRIBUTION WIDTH-CV 13.7 % (11.5-14.5)
[2021-09-26 07:02] LABS: CALCIUM 8.5 mg/dL (8.4-10.2); CREATININE, serum 0.76 mg/dL (0.57-1.11); POTASSIUM 3.9 mmol/L (3.5-4.5)
--- NOTE | 2021-09-26 07:13 | NUR ---
REPORT RECIVED FROM JESSICA NORMAN AT THIS TIME PT ASSISSTED TO BATHROOM
--- NOTE | 2021-09-26 07:23 | NUR ---
CHANGE OF SHIFT REPORT GIVEN TO DAY SHIFT LOUIS NORMAN
[2021-09-26 08:10] VITALS: BP 120/60; PULSE 67; TEMP 98.8
[2021-09-26 08:27] LABS: BAND 15 % (0-10); LYMPHOCYTE 5 % (20.0-51.0); NEUTROPHILS 76 % (42.0-75.2); PLATELET ESTIMATE NORMAL (NORMAL)
--- NOTE | 2021-09-26 09:59 | NUR ---
bag worker met with patient to discuss discharge plan. Patient states that she lives at home with her Marisela ([phone]) in [place]. Patient reports that she is fully independent with her activities of daily living and that she does not utilize any medical equipment to assist with mobility. Patient has no oxygen needs. PCP is Dr. Arevalo and she utilizes [facility] with no cost difficulties. 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 Patient stopped chemo this past spring and was placed on hospice care with [facility] at home from January-May then "graduated".Patient does not feel like she needs to go back on hospice at this point stating that she has been doing really well. Discharge plan: Home with .
[2021-09-26 11:58] VITALS: BP 137/60; PULSE 69; TEMP 98.4
[2021-09-26 16:09] VITALS: BP 137/57; PULSE 60; TEMP 98.1
--- NOTE | 2021-09-26 18:57 | NUR ---
RECEIVED CHANGE OF SHIFT REPORT FROM DAY SHIFT NURSE. PATIENT RESTING IN BED DURING REPORT WITH SPOUSE AT BEDSIDE WITH NO NEEDS OR CONCERNS REPORTED AT TIME OF REPORT. IV FLUIDS INFUSING WITH NO PROBLEMS, CALL LIGHT WITHIN REACH.
[2021-09-26 20:02] VITALS: BP 142/52; PULSE 71; TEMP 99.3
[2021-09-26 20:54] LABS: HEMOGLOBIN 13.5 g/dl (12.5-16.0)
[2021-09-27] VITALS (7 sets, daily range): BP systolic 129–157; BP diastolic 49–87; PULSE 61–104; TEMP 98–98.9
[2021-09-27 02:47] LABS: HEMATOCRIT 37.9 % (37.0-47.0); HEMOGLOBIN 12.6 g/dl (12.5-16.0)
[2021-09-27 06:42] LABS: HEMATOCRIT 38.7 % (37.0-47.0)
--- NOTE | 2021-09-27 07:02 | NUR ---
CHANGE OF SHIFT REPORT GIVEN TO DAY SHIFT LOUIS NORMAN.
[2021-09-27 08:07] LABS: CALCIUM 8.7 mg/dL (8.4-10.2); CREATININE, serum 0.73 mg/dL (0.57-1.11); POTASSIUM 3.6 mmol/L (3.5-4.5)
[2021-09-27 08:16] LABS: BASO % 0.3 % (0.0-2.0); EOS # 0.2 K/mm3 (0.0-0.7); GRAN # 5.1 K/mm3 (1.4-6.5); GRAN % 79.3 % (42.2-75.2); LYMPH # 0.7 K/mm3 (1.2-3.4); LYMPH % 10.8 % (20.0-51.0); MEAN CELL VOLUME 93 fl (80.0-100.0); MEAN CORPUSCULAR HEMOGLOBIN 30 pg (27.0-31.0); MEAN CORPUSCULAR HGB CONC 33 g/dl (33.0-37.0); MEAN PLATELET VOLUME 9.8 fl (7.4-10.4); MONO # 0.4 K/mm3 (0.1-0.6); MONO % 6.3 % (1.7-9.3); PLATELET COUNT 186 K/mm3 (130-400); RED BLOOD COUNT 4.24 M/mm3 (4.10-5.30); REDCELL DISTRIBUTION WIDTH-CV 14.1 % (11.5-14.5)
--- NOTE | 2021-09-28 02:13 | NUR ---
PT HAS BEEN NAUSEOUS ON ET OFF THROUGH NIGHT. PT HAS JUST NOW HAD 60 ML BROWN EMESIS AFTER RETURNING FROM . PHENERGAN IVPB ADMINISTERED. ZOFRAN IV DOES NOT SEEM TO ALLEVIATE PT'S SYMPTOMS. PT HAS HAD SEVERAL LOOSE STOOLS. STOOLS ARE LIQUID ET SMALL, BROWN WITH SOME BRIGHT RED. PT DENIES OTHER NEEDS, STATES THAT SHE JUST FEELS CRUMMY. CALL LIGHT WITHIN REACH.
[2021-09-28 03:24] VITALS: BP 156/82; PULSE 100; TEMP 98
--- NOTE | 2021-09-28 05:34 | NUR ---
PT IS AWAKE AFTER LAB HAS BEEN HERE TO DRAW BLOOD. PT STATES THAT SHE FEELS MUCH BETTER THAN EARLIER, DENIES NAUSEA ET PAIN. PT CONTINUES TO HAVE LOOSE STOOLS. PT DENIES OTHER NEEDS. CALL LIGHT WITHIN REACH.
--- NOTE | 2021-09-28 06:40 | NUR ---
Pt. progressing w/ plan of care. Pt. resting in bed at this time. Bedside report completed, report received from EMERSON Mcmahon. Pt. denies pain and nausea at this time. Pt. resting in bed comfortably. Pt. denies further needs at this time, call light and belongings in reach.
[2021-09-28 06:54] LABS: HEMATOCRIT 41.6 % (37.0-47.0); HEMOGLOBIN 13.8 g/dl (12.5-16.0); MEAN CELL VOLUME 92 fl (80.0-100.0); MEAN CORPUSCULAR HEMOGLOBIN 31 pg (27.0-31.0); MEAN CORPUSCULAR HGB CONC 33 g/dl (33.0-37.0); MEAN PLATELET VOLUME 9.7 fl (7.4-10.4); PLATELET COUNT 204 K/mm3 (130-400); RED BLOOD COUNT 4.52 M/mm3 (4.10-5.30); REDCELL DISTRIBUTION WIDTH-CV 13.7 % (11.5-14.5)
[2021-09-28 07:20] LABS: CALCIUM 8.5 mg/dL (8.4-10.2); CREATININE, serum 0.73 mg/dL (0.57-1.11); POTASSIUM 3.5 mmol/L (3.5-4.5)
[2021-09-28 07:34] VITALS: BP 136/73; PULSE 106; TEMP 97.6
[2021-09-28 07:52] LABS: BAND 6 % (0-10); EOSINOPHIL 2 % (0-4); LYMPHOCYTE 5 % (20.0-51.0); NEUTROPHILS 84 % (42.0-75.2); PLATELET ESTIMATE NORMAL (NORMAL)
[2021-09-28 12:14] VITALS: BP 130/63; PULSE 98; TEMP 98.9
[2021-09-28 16:49] VITALS: BP 146/62; PULSE 77; TEMP 98.5
--- NOTE | 2021-09-28 17:29 | NUR ---
Pt. reports feeling better today. Pt. has been OOB and ambulating the unit. Pt. ambulates at least 200 feet each time, she has ambulated five times. Pt. reports her bloody stools have less blood today. Pt.'s BM was assessed this AM and she had a bright red bowel movement. Around 1700 pt.'s BM was assessed and the BM was brown. Pt. denies pain and denies nausea. Pt. was able to tolerate jello as well as an kinyarwanda ice. This RN spoke w/ Dr. Aparicio and he reports he would like a GI panel to be collected as well as a covid test. Pt.'s covid test is negative. Pt. has not yet moved her bowels since the GI panel has been ordered. Pt.'s family has visted off and on throughout the day. Needs addressed, call light and belongings in reach.
[2021-09-28 21:24] VITALS: BP 141/61; PULSE 68; TEMP 97.9
--- NOTE | 2021-09-28 22:09 | NUR ---
PT DENIES PAIN OR NAUSEA, HAS BEEN RESTING QUIETLY IN BED. PT IS STILL HAVING FREQUENT LOOSE STOOLS, HAS BEEN AMBULATING TO WITH NO PROBLEMS. PT DENIES NEEDS @ THIS TIME. REPSIRATIONS UNLABORED. CALL LIGHT WITHIN REACH.
[2021-09-28 23:29] VITALS: BP 140/61; PULSE 65; TEMP 97.8
[2021-09-29 05:58] VITALS: BP 147/69; PULSE 75; TEMP 98.1
[2021-09-29 06:04] LABS: EOS # 0.4 K/mm3 (0.0-0.7); EOS % 9.2 % (0-4.0); GRAN # 2.7 K/mm3 (1.4-6.5); HEMATOCRIT 37.5 % (37.0-47.0); HEMOGLOBIN 12.9 g/dl (12.5-16.0); LYMPH # 0.7 K/mm3 (1.2-3.4); LYMPH % 16.6 % (20.0-51.0); MEAN CELL VOLUME 89 fl (80.0-100.0); MEAN CORPUSCULAR HEMOGLOBIN 31 pg (27.0-31.0); MEAN CORPUSCULAR HGB CONC 34 g/dl (33.0-37.0); MEAN PLATELET VOLUME 9.4 fl (7.4-10.4); MONO # 0.3 K/mm3 (0.1-0.6); MONO % 8.2 % (1.7-9.3); PLATELET COUNT 200 K/mm3 (130-400); RED BLOOD COUNT 4.21 M/mm3 (4.10-5.30); REDCELL DISTRIBUTION WIDTH-CV 13.7 % (11.5-14.5)
[2021-09-29 06:24] LABS: ALBUMIN 2.6 gm/dL (3.4-4.8); CALCIUM 7.8 mg/dL (8.4-10.2); CREATININE, serum 0.68 mg/dL (0.57-1.11); MAGNESIUM 1.7 mg/dL (1.6-2.6); PHOSPHOROUS 2.5 mg/dL (2.3-4.7); POTASSIUM 3.5 mmol/L (3.5-4.5)
[2021-09-29 06:35] VITALS: BP 138/64; PULSE 68; TEMP 97.4
--- NOTE | 2021-09-29 06:52 | NUR ---
Report received from EMERSON Mcmahon. This RN opened the door to see Dr. Gold from GI with the patient. Will check back to assess patient this AM.
[2021-09-29 07:24] VITALS: BP 144/63; PULSE 80; TEMP 97.8
--- NOTE | 2021-09-29 08:08 | NUR ---
Pt. progressing w/ plan of care. Pt. denies pain/nausea. Pt. has been OOB independently to the bathroom. Pt. requesting to drink nutrition drinks per Dr. Gold reccomendations. This RN is to call Dr. Aparicio regarding pt.'s diet. Potassium 3.5 again today, plan to follow through with potassium protocol.
[2021-09-29] MEDS ORDERED: FLAGYL500 MG PO (08:53)
[2021-09-29] MEDS ORDERED: LEVAQUIN 750MG750 M1 PO (08:55)
[2021-09-29] MEDS ORDERED: COMPAZINE 5MG TA5 MG PO (08:56)
--- NOTE | 2021-09-29 09:51 | NUR ---
public health outreach worker presented Medicare IM form to patient. Education provided and this sw witnessed patients signature. Copy made for the patient's chart and original provided to the patient.
[2021-09-29 11:47] VITALS: BP 134/75; PULSE 114; TEMP 97.9
--- NOTE | 2021-09-29 17:15 | NUR ---
Pt. discharged home. IV removed, site c/d/i. All discharge paperwork reviewed with the patient and her . Paper script provided to patient and her for compazine. All questions answered.
== END 2021-09-29 17:10 | disposition home or self-care (01) | DRG 392 ==
LOC: COL.ER 21:25 → SURG 23:53
PROVIDERS: Emergency Medicine; Internal Medicine; Nurse Practitioner Family; Physician Assistant; ADMIT Internal Medicine
DX: A09 Infectious gastroenteritis and colitis, unspecified (principal); C49.9 Malignant neoplasm of connective and soft tissue, unspecified; R18.8 Other ascites; K92.1 Melena; C78.6 Secondary malignant neoplasm of retroperitoneum and peritoneum; K56.7 Ileus, unspecified; I10 Essential (primary) hypertension; E89.0 Postprocedural hypothyroidism; Z66 Do not resuscitate; K59.00 Constipation, unspecified; Z23 Encounter for immunization; Z20.822 Contact with and (suspected) exposure to COVID-19
CPT/HCPCS: 99223-AI; 99233-AI; 99239; C9113; J0696; J0780; J1170; J2270; J2405; J2550; J2765; J3480; J7030; J7120; Q9967

== ENCOUNTER 2022-01-06 08:51 | Day surgery (SDC) | payer MEDICARE, OTHER ==
[2006-01-22 05:56] VITALS: BP 135/74
[~2022-01-06] VITALS: Ht 162.6 cm; Wt 62.9 kg
[~2022-01-06 08:51] MED LIST changes: +COMPAZINE 5MG TA5 MG PO; +FLAGYL500 MG PO; +LEVAQUIN 750MG750 M1 PO; +ZOFRAN 4MG T4 MG/TAB PO
[2022-01-06 09:22] VITALS: BP 166/64; PULSE 52; TEMP 97
[2022-01-06 12:10] VITALS: BP 117/53; PULSE 44; TEMP 98.2
[2022-01-06 12:25] VITALS: BP 129/53; PULSE 43
[2022-01-06 12:40] VITALS: BP 130/55; PULSE 47
--- NOTE | 2022-01-06 13:10 | NUR ---
1210 PT RETURNED TO ROOM VIA CART. ALERT AND ORIENTED. POST OP VITALS STARTED. PT DENIES PAIN OR NAUSEA. NO COMPLICATIONS NOTED. CRANBERRY JUICE AND MUFFIN PROVIDED. 1225 PT TOLERATING FOOD AND DRINK WELL. NO COMPLICATIONS. 1240 PT DENIES ANY DISCOMFORT. PT UP TO RESTROOM, ABLE TO VOID WITHOUT DIFFICULTY. IV REMOVED WITHOUT COMPLICATIONS. PT ALLOWED TO DRESS. 1255 REVIEWED DISCHARGE INSTRUCTIONS AND EDUCATION MATERIAL. PT DENIES ANY QUESTIONS OR CONCERNS. 1310 PT TRANSFERED TO PERSONAL VEHICLE TO BE DRIVEN HOME BY , ARTHUR.
== END 2022-01-06 13:10 | disposition home or self-care (01) ==
LOC: SDCO 08:51
DX: N13.1 Hydronephrosis with ureteral stricture, not elsewhere classified (principal); C49.9 Malignant neoplasm of connective and soft tissue, unspecified; I10 Essential (primary) hypertension; I49.3 Ventricular premature depolarization; E07.9 Disorder of thyroid, unspecified; Z85.850 Personal history of malignant neoplasm of thyroid; Z66 Do not resuscitate; Z92.3 Personal history of irradiation; Z79.899 Other long term (current) drug therapy; Z79.890 Hormone replacement therapy
CPT/HCPCS: C1769; C2617; J0690; J1100; J1885; J2405; J2704; J3010; J7120

== ENCOUNTER 2022-05-05 13:26 | Day surgery (SDC) | payer MEDICARE, OTHER ==
[2006-01-22 05:56] VITALS: BP 135/74
[~2022-05-05] VITALS: Ht 162.6 cm; Wt 61.7 kg
[2022-05-05] MEDS ORDERED: PEPCID AC 10MG10 MG PO (13:58)
[2022-05-05 14:18] VITALS: BP 167/64; PULSE 53; TEMP 98.2
[2022-05-05 15:45] VITALS: BP 149/64; PULSE 48; TEMP 98.2
[2022-05-05 16:00] VITALS: BP 145/58; PULSE 46
[2022-05-05 16:15] VITALS: BP 148/63; PULSE 50
--- NOTE | 2022-05-05 16:45 | NUR ---
Pt arrived from PACU, phone report received; pt A&Ox4 upon return, VSS; pt utilized bedpan for UOP x1 in PACU without incident.
[2022-05-05 17:05] VITALS: BP 154/67; PULSE 49; TEMP 97.7
== END 2022-05-05 16:30 | disposition home or self-care (01) ==
LOC: SDCO 13:26
DX: N13.1 Hydronephrosis with ureteral stricture, not elsewhere classified (principal); Z98.890 Other specified postprocedural states
CPT/HCPCS: C1769; C2617; J0690; J1100; J2405; J2704; J7120